=== PATIENT | female | born 1995 | race Caucasian/White ===

== ENCOUNTER 2023-01-27 23:07 | Emergency (ER) | payer SELFPAY ==
[2023-01-27 23:08] VITALS: BP 143/98; PULSE 94; RESP 14; TEMP 36.8; O2SAT 98; BMI 44.4
--- NOTE | 2023-01-27 23:51 | EX.ED.GENINJ ---
HPI History of Present Illness Chief Complaint: Head Injury Narrative Narrative: 27-year-old female who denies significant past medical history presents with closed head injury that she sustained over 24 hours ago, yesterday morning. She states that she was getting out of the tub, and she fell. She slipped and hit the left side of her head against the floor, and hit the right side of her head against the toilet. There was no loss of consciousness. She presents today because she feels dazed, dizzy, and is having problems concentrating. She denies any profuse vomiting, tinnitus, or paresthesias of her arms or legs. She does not take blood thinners. No neck pain or other symptoms. [facility] Medical History Asthma COVID Pneumonia Home Medications albuterol sulfate 0.63 mg/3 mL solution for nebulization 0.63 mg inhalation Q6H 08/12/22 [History Last Taken Unknown] Allergy/AdvReac Type Severity Reaction Status Date / Time pineapple Allergy Unknown itchy Verified 01/27/23 23:08 burning tongue wheat Allergy Unknown Hives Verified 01/27/23 23:08 ROS ROS ED ROS Narrative Constitutional: No fever, no chills. HEENT: No sore throat. No neck pain. No loss of vision. No rhinorrhea. Cardiovascular: No chest pain. No palpitations. No pedal edema. Respiratory: No cough, no shortness of breath. Abdominal: No abdominal pain. No nausea. No vomiting. Genitourinary: No dysuria. No hematuria. Musculoskeletal: No myalgias. No arthralgias. Neurologic: Positive for headaches. Positive dizziness and lightheadedness, positive brain fog and problems concentrating. Skin: No rash. No change in color. Psychiatric: No depression. No anxiety. EXAM Physical Exam Narrative Exam Narrative: Afebrile. Vital signs noted. HEENT: Normocephalic. PERRL, EOMI. Neck soft and supple. No point tenderness or step off. Mild tenderness to palpation right parietal scalp. Cardiovascular: Regular rate and rhythm. No murmurs, rubs, or gallops appreciated. Respiratory: No tachypnea. Lungs clear to auscultation bilaterally. Gastrointestinal: Abdomen soft, nontender, with normoactive bowel sounds. No rebound or guarding. Neurological: Awake. Alert. Nonfocal, nonlateralizing. Skin: No rash. Normal color. No pallor. Musculoskeletal: No pedal edema. Full range of motion extremities. Const Vital Signs: 01/27/23 23:08 Temperature 98.2 F Temperature Source Temporal Pulse Rate 94 Respiratory Rate 14 Blood Pressure 143/98 H Blood Pressure Mean 113 Pulse Ox 98 Oxygen Delivery Method Room Air MDM MDM MDM Narrative Medical decision making narrative: I do not feel CT of the brain is indicated. In the differential is mild concussion versus intracranial hemorrhage and skull fracture. However, the history and physical is not supportive of the latter 2. Her injury is greater than 24 hours old, almost 36 hours old. She will take [id number] medications and follow-up with her primary care provider. Activity will be as tolerated. I do not feel she requires observation. I do not feel laboratory work is indicated. Return instructions to the emergency department were reviewed. Disposition is discharged home in stable condition. Discharge Plan Triage Chief Complaint: Head Injury ED Provider: Pepe Cordero Dx/Rx/DC Orders Clinical Impression: Concussion, Contusion of scalp Instructions: ED Concussion, ED Scalp Contusion, ED Head Injury (Adult) Prescriptions: No Action albuterol sulfate 0.63 mg/3 mL solution for nebulization 0.63 mg inhalation Q6H Activity Restrictions/Additional Instructions: Follow-up with your primary care provider in the next 7 days if your symptoms persist. Use [id number] medications like Tylenol and ibuprofen for pain. Disposition Disposition: Home, Self Care
[2023-01-28 00:12] VITALS: PULSE 71; RESP 18; O2SAT 98
== END 2023-01-28 00:15 | disposition home or self-care (01) ==
LOC: ED 23:59
PROVIDERS: Emergency Provider Emergency Medicine; PCP Nurse Practitioner Family; Visit Provider Emergency Medicine
DX: S06.0X0A Concussion without loss of consciousness, initial encounter (principal); S00.03XA Contusion of scalp, initial encounter; W01.198A Fall on same level from slipping, tripping and stumbling with subsequent striking against other object, initial encounter; Y93.E1 Activity, personal bathing and showering
CPT/HCPCS: 99282

== ENCOUNTER → 2024-09-11 | Outpatient (CLI) | payer SELFPAY ==
[2024-09-11 13:40] LABS: Hematocrit 40.2 % (37-47); Hemoglobin 13.6 g/dL (12.0-15.0); Immature Granulocytes Count 0.030 X10^3/uL (0.0-0.0); Mean Corp Hgb Conc 33.8 g/dL (32-36); Mean Corpuscular Volume 83.2 fL (81-99); Mean Platelet Vol. 12.0 fl (6.2-12.0); NRBC Flagged by Analyzer 0 % (0-5); Platelet Count 186 K/mm3 (150-450); RBC Distribution Width CV 12.9 % (11.6-14.6); RBC Distribution Width SD 39.0 fl (35.1-43.9); Red Blood Count 4.83 M/mm3 (4.2-5.4); White Blood Count 7.4 K/mm3 (4.4-11.0)
[2024-09-15 06:08] LABS: Ash, White 0.24 kU/L (Class 0/I); Black Walnut 0.18 kU/L (Class 0/I); Cat Hair / Dander,Stand 1.12 kU/L (Class II); Cedar, Mountain 0.12 kU/L (Class 0/I); Cockroach, American 0.18 kU/L (Class 0/I); Dog Epithelia <0.10 kU/L (Class 0); Elm, American White 0.19 kU/L (Class 0/I); Mulberry, White 0.11 kU/L (Class 0/I); Oak, White 0.14 kU/L (Class 0/I); Pigweed, Rough 0.13 kU/L (Class 0/I); Ragweed, Short/Common 0.19 kU/L (Class 0/I); Sycamore, American 0.20 kU/L (Class 0/I)
== END | disposition home or self-care (01) ==
LOC: LAB 12:49
PROVIDERS: PCP Nurse Practitioner Family; Referring Provider Internal Medicine Critical Care Medicine; Visit Provider Internal Medicine Critical Care Medicine
DX: J45.909 Unspecified asthma, uncomplicated (principal)
CPT/HCPCS: 36415; 82785; 85025; 86003

== ENCOUNTER → 2024-09-26 | Outpatient (CLI) | payer SELFPAY ==
--- OUTSIDE RECORDS SUMMARY | 2024-09-26 11:08 | XMS RPT_ITS | CCD ---
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 Machinist Name Role Phone Raymond Ventura Unavailable NICHELLE HENRYHEL Mary Unavailable Unavailable SELF, SELF Unavailable Unavailable Raymond Ventura Primary Care Provider Raymond Ventura Primary Care Provider JUDIT FRANK Referring Unavail able RAYMOND VENTURA Primary Care Unavailable JUDIT FRANK Admitting Unavail able RAYMOND VENTURA Primary Care Unavailable JUDIT FRANK Attending Unavail able RAYMOND VENTURA Primary Care Unavailable CARLEEN ROBLES Admitting Unavai labmariia VENTUAR, RAYMOND ACOSTA Primary Care Unavailable LORENZO, RAYMOND ACOSTA Attending Unavailable RAYMOND VENTURA Primary Care Unavailable COOPERRIDER II, NORMAN Cano Referring Unavailabl e GRMANUEL, RAYMOND Dennis Primary Care Unavailable COOPERRIDEROSEAS Referring Unavailabl e COOPERRIDER II, NORMAN Cano Attending Unavailabl e GRUNDRAYMOND Primary Care Unavailable OSEAS ECHAVARRIA Attending Unavailabl e GRRAYMOND JACKSON Primary Care Unavailable EVANGELISTA TRUJILLO Referring Unavailable SONALI MUÑOZ Attending Unavailable SONALI MUÑOZ Primary Care Unavailable SHAMIR GUZMAN DO Attending Unavailable SHAMIR GUZMAN DO Primary Care Unavailable SHAMIR GUZMAN DO Admitting Unavailable Derrek ACCOUNT AUDITOR-C, Sonali Primary Care Provider [phone] Derrek PALMER-CSonali Referring Provider [phone] Dr. Meño Sampson DO Attending Provider Dr. Meño Sampson DO Referring Provider Derrek ACCOUNT AUDITORSonali Primary Care Unavailable Sonali Muñoz NP Referring Unavailable Meño Sampson Attending Unavailable Sonali Muñoz NP Primary Care Unavailable Meño Sampson Attending Unavailable Meño Sampson Referring Unavailable Meño Sampson Attending Unavailable Meño Sampson Referring Unavailable Sonali Muñoz NP Primary Care Unavailable Allergies Allergy Classification Reported Allergen(s) Allergy Type Date of Onset Reaction(s) Facility Corticosteroids (1 source) predniSONE; Translations: [PREDNISONE] Drug Allergy 0 [facility] Repository (7 sources) pineapple allergenic extract; Translations: [PINEAPPLE] Drug Allergy 7 [facility] Work Phone: (6 sources) Pineapple Propensity to adverse reactions to drug 8 itchy burning tongue [facility] (6 sources) predniSONE; Translations: [PREDNISONE] Drug Allergy 0 [facility] (3 sources) Wheat preparation Drug Allergy 3 [facility] (1 source) Gluten; Translations: [GLUTEN] Propensity to adverse reactions to drug (disorder) 4 [facility] Repository (1 source) Wheat preparation Drug Allergy 5 [facility] Repository (1 source) pineapple Drug allergy (disorder) 5 [facility] Repository Medications Current Medications Medication Drug Class(es) Dates Sig (Normalized) Sig (Original) albuterol 0.21 mg/ml inhalation solution (3 sources) beta2-Adrenergic Agonist Start: 08-12-2022 take 0.63 mg by inhalation every six hours Albuterol Sulfate 0.63 mg/3 mL solution for nebulization Active 0.63 mg INHALATION EVERY 6 HOURS August 12, 2022 12:00am albuterol 90 mcg/actuation inhaler (3 sources) Start: 11-15-2019 take 2 puff(s) by inhalation every four hours as needed for wheezing albuterol 90 mcg/actuation inhaler Indications: Asthma, exercise induced Inhale 2 (two) puffs every 4 (four) hours as needed for wheezing or shortness of breath . 1 Inhaler 1 11/15/2019 Active amoxicillin 500 mg oral capsule (1 source) Penicillin-class Antibacterial Start: 11-15-2019 End: 11-25-2019 take 1 capsule by mouth three times daily amoxicillin (AMOXIL) 500 MG capsule Indications: Left otitis media, unspecified otitis media type Take 1 (one) capsule (500 mg total) by mouth 3 (three) times a day for 10 days . 30 capsule 0 11/15/2019 11/25/2019 Active fexofenadine hydrochloride 180 mg oral tablet (3 sources) Histamine-1 Receptor Antagonist take 1 tablet by mouth once daily fexofenadine (JASPER) 180 MG tablet Take 180 mg by mouth daily. 0 Active fluticasone propionate 0.05 mg/actuat metered dose nasal spray (4 sources) Corticosteroid Start: 10-11-2017 End: 11-14-2020 take 2 spray(s) nasal route once daily fluticasone propionate (FLONASE) 50 mcg/actuation nasal spray Indications: Dysfunction of left eustachian tube Instill 2 (two) sprays into each nostril daily . 16 g 12 11/15/2019 11/14/2020 Active sertraline 100 mg oral tablet (2 sources) Serotonin Reuptake Inhibitor Start: 09-11-2024 take 1 tablet by mouth once daily in the morning Sertraline 100 mg tablet Active 100 mg PO EVERY MORNING September 11, 2024 12:00am sod zuvet-lmudkf-scxftk bottle (NEILMED SINUS RINSE COMPLETE) pkdv (1 source) Start: 10-11-2017 sod lhsfa-qjlhyh-lyun ez bottle (NEILMED SINUS RINSE COMPLETE) pkdv Indications: Sinusitis, unspecified chronicity, unspecified location Instill 1 application into each nostril daily. 30 each 3 10/11/2017 Active Completed/Discontinued Medications Medication Drug Class(es) Dates Sig (Normalized) Sig (Original) Azithromycin 250 Mg Po Tabs (1 source) Macrolide Antimicrobial Start: 01-08-2017 End: 02-05-2018 azithromycin 250 MG Tab tablet Take 2 tablets (500 mg) on Day 1, then 1 tablet (250 mg) daily on Days 2-5 6 tablet 0 01/08/2017 02/05/2018 Discontinued brompheniramine maleate 0.4 mg/ml / dextromethorphan hydrobromide 2 mg/ml / pseudoePHEDrine hydrochloride 6 mg/ml oral solution (1 source) alpha-Adrenergic Agonist, Uncompetitive U-psvrll-M-aspartat e Receptor Antagonist, Sigma-1 Agonist Start: 01-08-2017 End: 02-05-2018 take 1-2 [tsp_us] by mouth every six hours as needed pseudoephedrine-b rompheniramine-de xtromethorphan (BROMFED DM) 30-2-10 MG/5ML Syrup Take 1-2 teaspoon PO every 6 hours as needed 150 mL 0 01/08/2017 02/05/2018 Discontinued Problems Active Problems Problem Classification Problem Date Documented Date Episodic/Chronic Abdominal pain (1 source) Pain in pelvis; Translations: [Pelvic Pain] Onset: 02-05-2018 Episodic Allergic reactions (2 sources) Urticaria; Translations: [Hives] Episodic Asthma (8 sources) Exercise-induced asthma; Translations: [Asthma] Onset: 09-24-2024 08-12-2022 Chronic Cardiac dysrhythmias (2 sources) Palpitations; Translations: [Palpitations] Episodic Intracranial injury (3 sources) Concussion injury of body structure; Translations: [Concussion] 01-27-2023 Episodic Malaise and fatigue (2 sources) Fatigue; Translations: [Fatigue, unspecified type] Episodic Menstrual disorders (3 sources) Dysmenorrhea; Translations: [Excessive and frequent menstruation with regular cycle] Onset: 01-16-2024 Chronic Other lower respiratory disease (2 sources) Dyspnea; Translations: [Shortness of breath] Episodic Other nutritional; endocrine; and metabolic disorders (3 sources) Morbid obesity; Translations: [Obesity, morbid, BMI 40.0-49.9] Onset: 02-05-2018 02-05-2018 Chronic Other screening for suspected conditions (not mental disorders or infectious disease) (2 sources) Electrocardiogram abnormal; Translations: [Abnormal ECG] Episodic Other upper respiratory disease (2 sources) Nasal discharge; Translations: [Rhinorrhea] Episodic Other upper respiratory disease (2 sources) Nasal congestion; Translations: [Nasal congestion] Episodic Other upper respiratory infections (3 sources) Acute pharyngitis; Translations: [Acute pharyngitis, unspecified] 08-12-2022 Episodic Otitis media and related conditions (2 sources) Otitis media of left ear; Translations: [Dysfunction of left eustachian tube] Pneumonia (except that caused by tuberculosis or sexually transmitted disease) (1 source) Unspecified bacterial pneumonia; Translations: [Unspecified bacterial pneumonia] Onset: 04-29-2024 Episodic Residual codes; unclassified (2 sources) Chill; Translations: [Chills] Episodic Superficial injury; contusion (3 sources) Contusion of scalp; Translations: [Contusion of scalp, initial encounter] 01-27-2023 Episodic Unclassified (1 source) Pelvic Pain / [id number]() Onset: 02-05-2018 Unclassified (1 source) Other / 0() Onset: 02-05-2018 Unclassified (1 source) Cough, unspecified; Translations: [Cough, unspecified] Onset: 04-29-2024 Past or Other Problems Problem Classification Problem Date Documented Da te Episodic/Chronic Blindness and vision defects (1 source) Myopia, bilateral; Translations: [Myopia, bilateral] Onset: 07-19-2019 Episodic Unclassified (1 source) Other; Translations: [Other] Onset: 02-05-2018 Unclassified (1 source) Cough, unspecified; Translations: [Cough, unspecified] Onset: 04-29-2024 Results Test Name Value Interpretation Reference Range Facility Immunoglobulin Filippo 5 IMMUNOGLOB E QN 251 IU/mL Normal 6-495 [facility] Comment on above: Result Comment: Perf ormed at: - [facility] [address] [id number] Log Buyer: Austyn Lorenzana MD, Phone: [phone] Performed By: #### L 100.0100, L5500.0700, L3200.1600 #### [facility] [address] [place], [place], [id number] Allergen Resp. Area [id number] ALTERNARIA TEN <0.10 Normal Class 0 [facility] Comment on above: Order Comment: Reaso n for Exam: Asthma Performed By: #### L 100.0100, L5500.0700, L3200.1600 #### [facility] [address] [place], [place], [id number] BRIAN, WHITE 0.24 kU/L Abnormal Class 0/I [facility] Comment on above: Order Comment: Reaso n for Exam: Asthma Performed By: #### L 100.0100, L5500.0700, L3200.1600 #### [facility] [address] [place], [address] ASPERGILLUS FUM <0.10 Normal Class 0 [facility] Comment on above: Order Comment: Reaso n for Exam: Asthma Performed By: #### L 100.0100, L5500.0700, L3200.1600 #### [facility] [address] [place], [address] BERMUDA GRASS 0.22 kU/L Abnormal Class 0/I [facility] Comment on above: Order Comment: Reaso n for Exam: Asthma Performed By: #### L 100.0100, L5500.0700, L3200.1600 #### [facility] [address] [place], [address] BIRCH 0.12 kU/L Abnormal Class 0/I [facility] Comment on above: Order Comment: Reaso n for Exam: Asthma Performed By: #### L 100.0100, L5500.0700, L3200.1600 #### [facility] [address] [place], [address] BLACK WALNUT 0.18 kU/L Abnormal Class 0/I [facility] Comment on above: Order Comment: Reaso n for Exam: Asthma Performed By: #### L 100.0100, L5500.0700, L3200.1600 #### [facility] [address] [place], [address] CAT HAIR/DANDER 1.12 kU/L Abnormal Class II [facility] Comment on above: Order Comment: Reaso n for Exam: Asthma Performed By: #### L 100.0100, L5500.0700, L3200.1600 #### [facility] [address] [place], [address] CLADOSPOR HERB <0.10 Normal Class 0 [facility] Comment on above: Order Comment: Reaso n for Exam: Asthma Performed By: #### L 100.0100, L5500.0700, L3200.1600 #### [facility] [address] [place], [address] COCKROACH,AMER 0.18 kU/L Abnormal Class 0/I [facility] Comment on above: Order Comment: Reaso n for Exam: Asthma Performed By: #### L 100.0100, L5500.0700, L3200.1600 #### [facility] [address] [place], [address] COMMENT Comment Normal . [facility] Comment on above: Order Comment: Reaso n for Exam: Asthma Result Comment: Zafar ceballos of Specific IgE Class Description of Class ----- < 0.10 0 Negative 0.10 - 0.31 0/I Equivocal/Low 0.32 - 0.55 I Low 0.56 - 1.40 II Moderate 1.41 - 3.90 III High 3.91 - 19.00 IV Very High 19.01 - 100.00 V Very High >100.00 Very High Performed By: #### L 100.0100, L5500.0700, L3200.1600 #### [facility] [address] [place], [address] COTTONWOOD 0.20 kU/L Abnormal Class 0/I [facility] Comment on above: Order Comment: Reaso n for Exam: Asthma Performed By: #### L 100.0100, L5500.0700, L3200.1600 #### [facility] [address] [place], [address] D FARINAE MITE 0.10 kU/L Abnormal Class 0/I [facility] Comment on above: Order Comment: Reaso n for Exam: Asthma Performed By: #### L 100.0100, L5500.0700, L3200.1600 #### [facility] [address] [place], [address] D PTERONYSSINUS <0.10 Normal Class 0 [facility] Comment on above: Order Comment: Reaso n for Exam: Asthma Performed By: #### L 100.0100, L5500.0700, L3200.1600 #### [facility] [address] [place], [address] DOG EPITHELIA <0.10 Normal Class 0 [facility] Comment on above: Order Comment: Reaso n for Exam: Asthma Performed By: #### L 100.0100, L5500.0700, L3200.1600 #### [facility] [address] [place], [address] ELM,AMER WHITE 0.19 kU/L Abnormal Class 0/I [facility] Comment on above: Order Comment: Reaso n for Exam: Asthma Performed By: #### L 100.0100, L5500.0700, L3200.1600 #### [facility] [address] [place], [address] IMMUNOGLOB E 239 IU/mL Normal 6-495 [facility] Comment on above: Order Comment: Reaso n for Exam: Asthma Performed By: #### L 100.0100, L5500.0700, L3200.1600 #### [facility] [address] [place], [address] MAPLE/BOX ELDER 0.18 kU/L Abnormal Class 0/I [facility] Comment on above: Order Comment: Reaso n for Exam: Asthma Performed By: #### L 100.0100, L5500.0700, L3200.1600 #### [facility] [address] [place], [address] M[place] 0.12 kU/L Abnormal Class 0/I [facility] Comment on above: Order Comment: Reaso n for Exam: Asthma Performed By: #### L 100.0100, L5500.0700, L3200.1600 #### [facility] [address] [place], [address] Mouse Urine <0.10 Normal Class 0 [facility] Comment on above: Order Comment: Reaso n for Exam: Asthma Performed By: #### L 100.0100, L5500.0700, L3200.1600 #### [facility] [address] [place], [address] MULBERRY,WHITE 0.11 kU/L Abnormal Class 0/I [facility] Comment on above: Order Comment: Reaso n for Exam: Asthma Performed By: #### L 100.0100, L5500.0700, L3200.1600 #### [facility] [address] [place], [address] OAK, WHITE 0.14 kU/L Abnormal Class 0/I [facility] Comment on above: Order Comment: Reaso n for Exam: Asthma Performed By: #### L 100.0100, L5500.0700, L3200.1600 #### [facility] [address] [place], [address] PECAN 0.15 kU/L Abnormal Class 0/I [facility] Comment on above: Order Comment: Reaso n for Exam: Asthma Performed By: #### L 100.0100, L5500.0700, L3200.1600 #### [facility] [address] [place], [address] PEN NOTATUM <0.10 Normal Class 0 [facility] Comment on above: Order Comment: Reaso n for Exam: Asthma Performed By: #### L 100.0100, L5500.0700, L3200.1600 #### [facility] [address] [place], [address] PIGWEED, ROUGH 0.13 kU/L Abnormal Class 0/I [facility] Comment on above: Order Comment: Reaso n for Exam: Asthma Performed By: #### L 100.0100, L5500.0700, L3200.1600 #### [facility] [address] [place], [address] RAGWEED SH/COM 0.19 kU/L Abnormal Class 0/I [facility] Comment on above: Order Comment: Reaso n for Exam: Asthma Performed By: #### L 100.0100, L5500.0700, L3200.1600 #### [facility] [address] [place], [address] SPANISH THISTLE 0.18 kU/L Abnormal Class 0/I [facility] Comment on above: Order Comment: Reaso n for Exam: Asthma Performed By: #### L 100.0100, L5500.0700, L3200.1600 #### [facility] [address] [place], [address] SHEEP SORREL 0.19 kU/L Abnormal Class 0/I [facility] Comment on above: Order Comment: Reaso n for Exam: Asthma Result Comment: Perf ormed at: - [facility] [id number] Log Buyer: Austyn Lorenzana MD, Phone: [phone] Performed By: #### L 100.0100, L5500.0700, L3200.1600 #### [facility] [address] [place], [address] SYCAMORE, AMER 0.20 kU/L Abnormal Class 0/I [facility] Comment on above: Order Comment: Reaso n for Exam: Asthma Performed By: #### L 100.0100, L5500.0700, L3200.1600 #### [facility] [address] [place], [address] EDELMIRA GRASS 0.46 kU/L Abnormal Class I [facility] Comment on above: Order Comment: Reaso n for Exam: Asthma Performed By: #### L 100.0100, L5500.0700, L3200.1600 #### [facility] [address] [place], [address] Absolute lymphocyte countOrd ered By: Meño Sampson on 09-11-2024 Lymphocytes Auto (Unsp spec) [#/Vol] 1.91 10*3/uL 0.83-4.51 [facility] Absolute neutrophil countOrd ered By: Meño Sampson on 09-11-2024 Neutrophils (Bld) [#/Vol] 4.8 10*3/uL 2.0-7.7 [facility] Automated lymphocyte count a s percentage of total leukocytesOrdered By: Meño Sampson on 09-11-2024 Lymphocytes/100 WBC Auto (Unsp spec) 25.7 % 19-41 [facility] Basophil percentageOrdered B y: Meño Sampson on 09-11-2024 Basophils/100 WBC (Bld) 0.5 % 0-1 [facility] CBC W/Diff, Automatedon 08-28 Absolute Lymph 1.91 X10 3/uL Normal 0.83-4.51 [facility] Comment on above: Performed By: #### L 100.0100, L5500.0700, L3200.1600 #### [facility] [address] [place], [address] Absolute Neut 4.8 X10 3/uL Normal 2.0-7.7 [facility] Comment on above: Performed By: #### L 100.0100, L5500.0700, L3200.1600 #### [facility] [address] [place], [address] Basophils/100 WBC (Bld) 0.5 % Normal 0-1 [facility] Comment on above: Performed By: #### L 100.0100, L5500.0700, L3200.1600 #### [facility] [address] [place], [address] Eosinophils/100 WBC (Bld) 4.7 % Normal 0-5 [facility] Comment on above: Performed By: #### L 100.0100, L5500.0700, L3200.1600 #### [facility] [address] [place], [address] Erythrocyte distribution width (RBC) [Ratio] 12.9 % Normal 11.6-14.6 [facility] Comment on above: Performed By: #### L 100.0100, L5500.0700, L3200.1600 #### [facility] [address] [place], [address] Hematocrit (Bld) [Volume fraction] 40.2 % Normal 37-47 [facility] Comment on above: Performed By: #### L 100.0100, L5500.0700, L3200.1600 #### [facility] [address] [place], [address] Hemoglobin (Bld) [Mass/Vol] 13.6 g/dL Normal 12.0-15.0 [facility] Comment on above: Performed By: #### L 100.0100, L5500.0700, L3200.1600 #### [facility] [address] [place], [address] IG% 0.400 Normal 0.0-0.9 [facility] Comment on above: Result Comment: IG% - Immature Granulocytes (promyelocytes, myelocytes and metamyelocytes) > 1% indicates that a LEFT SHIFT is Present. Performed By: #### L 100.0100, L5500.0700, L3200.1600 #### [facility] [address] [place], [address] Lymphocytes/100 WBC (Bld) 25.7 % Normal 19-41 [facility] Comment on above: Performed By: #### L 100.0100, L5500.0700, L3200.1600 #### [facility] [address] [place], [address] MCH (RBC) [Entitic mass] 28.2 pg Normal 27.0-32.0 [facility] Comment on above: Performed By: #### L 100.0100, L5500.0700, L3200.1600 #### [facility] [address] [place], [address] MCHC (RBC) [Mass/Vol] 33.8 g/dL Normal 32-36 [facility] Comment on above: Performed By: #### L 100.0100, L5500.0700, L3200.1600 #### [facility] [address] [place], [address] MCV (RBC) [Entitic vol] 83.2 fL Normal 81-99 [facility] Comment on above: Performed By: #### L 100.0100, L5500.0700, L3200.1600 #### [facility] [address] [place], [address] Monocytes/100 WBC (Bld) 3.9 % Normal 0-10 [facility] Comment on above: Performed By: #### L 100.0100, L5500.0700, L3200.1600 #### [facility] [address] [place], [address] Neutrophils/100 WBC (Bld) 64.8 % Normal 47-70 [facility] Comment on above: Performed By: #### L 100.0100, L5500.0700, L3200.1600 #### [facility] [address] [place], [address] Nucleated RBC (Bld) [#/Vol] 0 10*3/uL Normal 0-5 [facility] Comment on above: Performed By: #### L 100.0100, L5500.0700, L3200.1600 #### [facility] [address] [place], [address] Platelet mean volume (Bld) [Entitic vol] 12.0 fL Normal 6.2-12.0 [facility] Comment on above: Performed By: #### L 100.0100, L5500.0700, L3200.1600 #### [facility] [address] [place], [address] Platelets (Bld) [#/Vol] 186 10*3/uL Normal 150-450 [facility] Comment on above: Performed By: #### L 100.0100, L5500.0700, L3200.1600 #### [facility] [address] [place], [address] RBC (Bld) [#/Vol] 4.83 10*6/uL Normal 4.2-5.4 [facility] Comment on above: Performed By: #### L 100.0100, L5500.0700, L3200.1600 #### [facility] [address] [place], [address] RDW SD 39.0 fl Normal 35.1-43.9 [facility] Comment on above: Performed By: #### L 100.0100, L5500.0700, L3200.1600 #### [facility] [address] [place], [address] WBC (Bld) [#/Vol] 7.4 10*3/uL Normal 4.4-11.0 [facility] Comment on above: Performed By: #### L 100.0100, L5500.0700, L3200.1600 #### [facility] [address] [place], [address] Eosinophil percentageOrdered By: Meño Sampson on 09-11-2024 Eosinophils/100 WBC (Bld) 4.7 % 0-5 [facility] Erythrocyte distribution wid th ratioOrdered By: Meño Sampson on 09-11-2024 Erythrocyte distribution width (RBC) [Ratio] 12.9 % 11.6-14.6 [facility] Erythrocyte distribution wid th standard deviationOrdered By: Meño Sampson on 09-11-2024 Erythrocyte distribution width (RBC) [Ratio] 39.0 fl 35.1-43.9 [facility] Hematocrit Auto (Bld) [Volum e fraction]Ordered By: Meño Sampson on 09-11-2024 Hematocrit (Bld) [Volume fraction] 40.2 % 37-47 [facility] Hemoglobin measurementOrdere d By: Meño Sampson on 09-11-2024 Hemoglobin (Bld) [Mass/Vol] 13.6 g/dL 12.0-15.0 [facility] IgEOrdered By: Meño marroquin n 09-11-2024 IgE 251 IU/mL 6-495 [facility] Comment on above: Performed at: [address] [id number] Director: Austyn Lorenzana MD, Phone: [phone] Immature granulocytes/100 WB C Auto (Bld)Ordered By: Meño Sampson on 09-11-2024 Immature granulocytes/100 WBC (Bld) 0.400 % 0.0-0.9 [facility] Comment on above: IG% - Immature Granu locytes (promyelocytes, myelocytes and metamyelocytes) > 1% indicates that a LEFT SHIFT is Present. MCV (mean corpuscular volume ) determinationOrdered By: Meño Sampson on 09-11-2024 MCV (RBC) [Entitic vol] 83.2 fL 81-99 [facility] Mean corpuscular hemoglobin (MCH) determinationOrdered By: Meño Sampson on 09-11-2024 MCH (RBC) [Entitic mass] 28.2 pg 27.0-32.0 [facility] Mean corpuscular hemoglobin concentration (MCHC) determinationOrdered By: Meño Sampson on 09-11-2024 MCHC (RBC) [Mass/Vol] 33.8 g/dL 32-36 [facility] Mean platelet volume determi nationOrdered By: Meño Sampson on 09-11-2024 Platelet mean volume (Bld) [Entitic vol] 12.0 fL 6.2-12.0 [facility] Monocyte percentageOrdered B y: Meño Sampson on 09-11-2024 Monocytes/100 WBC (Bld) 3.9 % 0-10 [facility] Neutrophil percentageOrdered By: Meño Sampson on 09-11-2024 Neutrophils/100 WBC (Bld) 64.8 % 47-70 [facility] No Panel InformationOrdered By: Meño Sampson on 09-11-2024 RAST Comment Comment . [facility] Comment on above: Levels of Specific I gE Class Description of Class ----- < 0.10 0 Negative 0.10 - 0.31 0/I Equivocal/Low 0.32 - 0.55 I Low 0.56 - 1.40 II Moderate 1.41 - 3.90 III High 3.91 - 19.00 IV Very High 19.01 - 100.00 V Very High >100.00 Very High Nucleated red blood cell per centageOrdered By: Meño Sampson on 09-11-2024 Nucleated RBC/100 WBC (Bld) [Ratio] 0 % 0-5 [facility] Platelet countOrdered By: Guidry on 09-11-2024 Platelets (Bld) [#/Vol] 186 10*3/uL 150-450 [facility] Pulmonary Visit Reporton Pulmonary Visit Report [facility] [place] [address] [place] [address] OFFICE VISIT Date of Service: 09/11/24 MR#: [id number] Acct: [id number] Name: OPAL QUINONES Rep #: [id number] : 1995 Provider: Dr. 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 The patient typically experiences worsening in her respiratory symptoms during the winter months. At the present time, she is relatively asymptomatic and has not required the use of her rescue inhaler. Therefore, we will plan to obtain baseline pulmonary function studies along with a 6-minute walk test. In addition, a CBC with differential will be obtained to evaluate for peripheral eosinophilia along with IgE and RAST profile. The results of testing will be reviewed at her follow-up office visit. Orders: Orders Simple Pulmonary Exercise Test Today J45.909 - Unspecified asthma, uncomplicated PFT Complete - DLCO, Spirometry b/a bronchodilators, lung volumes Today J45.909 - Unspecified asthma, uncomplicated CBC W/Diff, Automated Today J45.909 - Unspecified asthma, uncomplicated Immunoglobulin E Today J45.909 - Unspecified asthma, uncomplicated Allergen Resp. Area 5 Today J45.909 - Unspecified asthma, uncomplicated HPI HPI Comments Details: The patient is a 28-year-old female who presents to the clinic today in referral for the evaluation of asthma. The patient reported that she was initially diagnosed with exercise-induced asthma sometime around 13 years old. Despite this, the patient was never evaluated by a rib cloth knitter, nor did she ever complete pulmonary function studies. She has only ever been treated with an albuterol rescue inhaler. She indicated that her respiratory symptoms tend to be worse during the winter months. She typically experiences shortness of breath and wheezing. When utilized, she did report that the albuterol rescue inhaler does provide some symptom relief for her. She is a lifelong non-smoker and denied having grown up in a smoking household. 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 She does currently keep 1 dog as a pet in her home environment. She does have a history of seasonal allergies, with symptoms that tend to be worse during the spring and fall months. Recently, she has not been experiencing any respiratory related symptoms that would require the use of her rescue inhaler. She denies any fevers, chills or night sweats. 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 Meño Sampson, DO) Asthma Pneumonia COVID Surgical History (Updated 09/11/24 @ 11:28 by Radha Goodwin LPN) History of ankle surgery Adrian teeth extracted Social History Smoking Status: Never smoker Review of Systems Resp Respiratory: Yes as per HPI Exam Const Constitutional: Positive conversant, cooperative, in no acute respiratory distress, well developed, well nourished, good hygiene and obese Head Head: Yes normocephalic and Yes atraumatic Eyes Eye: Positive clear conjunctiva; Negative nystagmus or scleral abnormality Ears Ear: Positive hearing normal and external ears normal Nose Nose: Yes external nose normal Mouth Mouth: Positive oral mucosae normal and posterior oropharynx is adequate; Negative no lesions Neck Neck: Positive normal visual inspection and trachea midline; Negative lymphadenopathy Chest Wall Chest: Positive symmetric chest movement Normal AP diameter. Resp lung sounds: Positive clear to auscultation and good air exchange; Negative wheezes, rhonchi or r (more content not included)... Normal [facility] RBC Auto (Bld) [#/Vol]Ordere d By: Meño Sampson on 09-11-2024 RBC (Bld) [#/Vol] 4.83 10*6/uL 4.2-5.4 [facility] Serum Bhutanese sycamore IgE antibody assay (units/volume)Ordered By: Meño Sampson on 09-11-2024 Bhutanese Wakita IgE Qn (S) 0.20 kU/L High Class 0/I [facility] Serum Aspergillus fumigatus IgE antibody assay (units/volume)Ordered By: Meño Sampson on 09-11-2024 A. fumigatus IgE Qn (S) <0.10 kU/L Class 0 [facility] Serum Bermuda grass IgE anti body assay (units/volume)Ordered By: Meño Sampson on 09-11-2024 Bermuda grass IgE Qn (S) 0.22 kU/L High Class 0/I [facility] Serum Cladosporium herbarum IgE antibody assay (units/volume)Ordered By: Meño Sampson on 09-11-2024 C. herbarum IgE Qn (S) <0.10 kU/L Class 0 [facility] Serum Dermatophagoides ptero nyssinus specific IgE antibody assay (units/volume)Ordered By: Meño Sampson on 09-11-2024 house dust mite IgE Qn (S) <0.10 kU/L Class 0 [facility] Serum Fraxinus americana IgE antibody assay (units/volume)Ordered By: Meño Sampson on 09-11-2024 White Brian IgE Qn (S) 0.24 kU/L High Class 0/I [facility] Serum Rumex acetosella IgE a ntibody assay (units/volume)Ordered By: Meño Sampson on 09-11-2024 Sheep [place] IgE Qn (S) 0.19 kU/L High Class 0/I [facility] Comment on above: Performed at: [address] [id number] Director: Austyn Lorenzana MD, Phone: [phone] Serum black walnut IgE antib jennifer assay (units/volume)Ordered By: Meño Sampson on 09-11-2024 Black Kenton IgE Qn (S) 0.18 kU/L High Class 0/I [facility] Serum cottonwood IgE antibod y assay (units/volume)Ordered By: Meño Sampson on 09-11-2024 Fordyce IgE Qn (S) 0.20 kU/L High Class 0/I [facility] Serum dog epithelium IgE ant ibody assay (units/volume)Ordered By: Meño Sampson on 09-11-2024 Dog epithelium IgE Qn (S) <0.10 kU/L Class 0 [facility] Serum edelmira IgE antibody a ssay (units/volume)Ordered By: Meño Sampson on 09-11-2024 Edelmira IgE Qn (S) 0.46 kU/L High Class I [facility] Serum white elm IgE antibody assay (units/volume)Ordered By: Meño Sampson on 09-11-2024 White Elm IgE Qn (S) 0.19 kU/L High Class 0/I [facility] Serum white mulberry IgE ant ibody assay (units/volume)Ordered By: Meño Sampson on 09-11-2024 White mulberry IgE Qn (S) 0.11 kU/L High Class 0/I [facility] White blood cell (WBC) count Ordered By: Meño Sampson on 09-11-2024 WBC (Bld) [#/Vol] 7.4 10*3/uL 4.4-11.0 [facility] CHEST 1 VIEWon 04-29-2024 CHEST 1 VIEW [place] [address] Patient: OPAL QUINONES Phone#: : 1995 Age: 28 Gender: F Pt. Type: ER Account: [id number] Location: [facility] Ordering: SHAMIR GUZMAN Exam Date: 04/29/2024/3:52 Family Phys: Charge Code: 605267 Physician: [place] Order #: [id number] Dose#: PROCEDURE: X-RAY CHEST 1 VIEW COMPARISON: [facility], XR, CHEST 1 VIEW, 05/15/2022, 2:08. INDICATIONS: Shortness of breath. FINDINGS: LUNGS: Normal. No significant pulmonary parenchymal abnormalities. VASCULATURE: Normal. Unremarkable pulmonary vasculature. CARDIAC: Normal. No cardiac silhouette abnormality or cardiomegaly. MEDIASTINUM: Normal. No visible mass or adenopathy. PLEURA: Normal. No effusion or pleural thickening. BONES: Normal. No fracture or visible bony lesion. OTHER: Negative. CONCLUSION: No acute disease. No significant change has occurred. Dictated by: Divine Barrera MD on 04/30/2024 at 10:06 Approved by: Divine Barrera MD on 04/30/2024 at 10:06 Normal [facility] CORONAVIRUS (SARS) ANTIGEN T ESTon 04-29-2024 EXTERNAL QC DONE? YES Normal [facility] Comment on above: Performed By: #### [id number] #### [facility],[address] [place] [address] INTERNAL CONTROL PASS Normal [facility] Comment on above: Performed By: #### [id number] #### [facility],[address] [place] [id number] SARS ANTIGEN Negative Normal NORMAL: NEGATIVE [facility] Comment on above: Performed By: #### [id number] #### [facility],[address] [place] [address] SEND TO ? NO Normal [facility] Comment on above: Result Comment: SARS -CoV-2 THIS TEST IS BEING USED UNDER THE FDA EUA PROCEDURE. THIS ASSAY HAS BEEN VALIDATED AT [facility] FOR USE WITH NASAL AND NASOPHARYNGEAL SWAB SPECIMENS. INTERPRETIVE DATA TEST RESULTS SHOULD ALWAYS BE CONSIDERED IN THE CONTEXT OF CLINICAL OBSERVATIONS AND EPIDEMIOLOGICAL DATA IN MAKING FINAL DIAGNOSIS AND PATIENT MANAGEMENT DECISIONS. PATIENT MANAGEMENT SHOULD FOLLOW CURRENT CDC GUIDELINES. THE DOM SARS ANTIGEN HEIDE DOES NOT DIFFERENTIATE BETWEEN SARS-CoV & SARS-CoV-2. A POSITIVE TEST RESULT INDICATES THE PRESENCE OF SARS-CoV-2 NUCLEOCAPSID PROTEIN ANTIGEN, AND THE PATIENT IS INFECTED WITH THE VIRUS AND PRESUMED TO BE CONTAGIOUS. A NEGATIVE TEST RESULT FOR THIS TEST MEANS THAT SARS-CoV-2 NUCLEOCAPSID PROTEIN ANTIGEN WAS NOT PRESENT IN THE SPECIMEN ABOVE THE LIMIT OF DETECTION. HOWEVER, A NEGATIVE RESULT DOES NOT RULE OUT COVID-19 AND SHOULD NOT BE USED THE SOLE BASIS FOR TREATMENT OR PATIENT MANAGEMENT DECISIONS. A NEGATIVE RESULT DOES NOT EXCLUDE THE POSSIBILITY OF COVID-19. NEGATIVE RESULTS, FROM PATIENTS WITH SYMPTOM ONSET BEYOND FIVE DAYS, SHOULD BE TREATED PRESUMPTIVE AND CONFIRMATION WITH A MOLECULAR ASSAY, IF NECESSARY, FOR PATIENT MANAGEMENT, MAY BE PERFORMED. WHEN DIAGNOSTIC TESTING IS NEGATIVE, THE POSSIBLILTY OF A FALSE NEGATIVE RESULT SHOULD BE CONSIDERED IN THE CONTEXT OF A PATIENT'S RECENT EXPOSURES AND THE PRESENCE OF CLINICAL SIGNS AND SYMPTOMS CONSISTENT WITH COVID-19. THE POSSIBILITY OF A FALSE NEGATIVE RESULT SHOULD ESPECIALLY BE CONSIDERED IF THE PATIENT'S RECENT EXPOSURES OR CLINICAL PRESENTATION INDICATE THAT COVID-19 IS LIKELY, AND DIAGNOSTIC TESTS FOR OTHER CAUSES OF ILLNESS (e.g., OTHER RESPIRATORY ILLNESS) ARE NEGATIVE. IF COVID-19 IS STILL SUSPECTED BASED ON EXPOSURE HISTORY TOGETHER WITH OTHER CLINICAL FINDINGS, RE-TESTING SHOULD BE CONSIDERED BY HEALTHCARE PROVIDERS IN CONSULTATION WITH PUBLIC HEALTH AUTHORITIES. Performed By: #### [id number] #### [facility],[address] [place] [id number] ED MED ADMINISTRATION DETAIL on 04-29-2024 ED MED ADMINISTRATION DETAIL Eight Arm Operator Medication Administration Record [address] [address] [id number] 04/29/2024 Patient: OPAL QUINONES Sex: Female : 1995 Age: 28y MEASUREMENTS: Wt: 113.4 kg, Ht/Duncan: 64.0 in, BMI: 42.91 ALLERGIES: No known drug allergies Medication Ordered Medication Administration Date/Time Albuterol-Ipratropiu 04:24 04/29 Albuterol-Ipratropium (DuoNeb) 3mg/0.5mg Neb Tx 3 Given m (DuoNeb) mL given. Given by the respiratory therapist. Allergies verified and 04:24 04/29/2024 3mg/0.5mg Neb Tx confirmed 5 rights. Information reviewed with patient including Johnny Duffie 3 mL (NOW x1) reason for taking this medication and signs of allergic reaction. Scanned Verbalizes understanding. - 04:24 Johnny Puente Benzonatate 03:52 03 Benzonatate (Tessalon) PO 200 mg given. Allergies Given (Tessalon) PO 200 verified and confirmed 5 rights. Information reviewed with patient. - 03:52 04/29/2024 mg (NOW x1) 04:12 Morales De La Cruz R.N. Scanned Azithromycin 05:51 04/29 Azithromycin (Zithromax) PO 500 mg given. Allergies Given (Zithromax) PO 500 verified and confirmed 5 rights. Information reviewed with patient. - 05:51 04/29/2024 mg (NOW x1) 05:51 Morales De La Cruz R.N. Scanned 1 of 1 Normal [facility] ED NURSES CLINICAL NOTEon ED NURSES CLINICAL NOTE Nurse Narrative Nurse Clinical Narrative [address] [address] [id number] 04/29/2024 Patient: OPAL QUINONES Sex: Female : 1995 Age: 28y Primary Insurance: [facility] OUTPATIENT Policy Number: [id number] Subscriber: Other Disposition: Discharge to Home Disposition Decision Time: 05:57 04/29/2024 Departure Time: 06:09 04/29/2024 TRIAGE Arrived by private vehicle. Primary physician (Sonali Muñoz). Triage time: 03:22 04/29/2024. Acuity: LEVEL 2. Chief Complaint: COUGH. Onset. (04/23/24). ( Pt c/o starting with a pressure type discomfort to her facial sinuses on 04/23/24 and then developed a cough on 04/28/24.). The patient has had chest congestion and sinus pain. ( Pt reports she has a pulse ox at home and tonight she noticed the level lesened to 72% when she walked to the bathroom.). SEPSIS SCREEN: NEGATIVE. SIRS criteria negative. SEVERE SEPSIS SCREEN NEGATIVE. No signs of organ dysfunction present. -- 03:41 04/29/24 NEETA Sims R.N. 03:30 04/29/24. BP: 138/87 (large cuff) taken on right arm, while sitting. MAP: 104. HR: 93. Regular and normal rate. RR: 16. Regular and unlabored. O2 saturation: 98% Temperature: 98 F (oral). Pain level now 0/10. -- 03:34 04/29/24 NEETA Sims R.N. Measurements: 03:36 04/29/24 Wt: 113.4 kg, Ht/Duncan: 64.0 in, BMI: 42.91 -- 03:36 04/29/24 NEETA Sims R.N. 1 of 4 Nurse Narrative Medications: Robitussin Cough-Chest Congestion DM oral -- 03:31 04/29/24 NEETA Sims R.N. albuterol sulfate HFA 90 mcg/actuation aerosol inhaler: 1 inhalation as needed. -- 03:32 04/29/24 NEETA Sims R.N. 03:22 04/29/24. Preferred Pharmacy: ([facility]). -- 03:41 04/29/24 NEETA Sims R.N. Allergies: no known drug allergies -- 03:31 04/29/24 NEETA Sims R.N. Problems: Asthma: Active -- 03:38 04/29/24 NEETA Sims R.N. Pneumonia -- 03:38 04/29/24 NEETA Sims R.N. ADDITIONAL SURGERIES: ankle repair -- 03:39 04/29/24 NEETA Sims R.N. History 03:04/29/24. SOCIAL HX: Smoker- current status unknown. Never smoker. Alcohol use. (0). Drug use. (0). The patient has not traveled outside the [place] Infectious disease exposure: The patient was not exposed to C-diff, influenza or Coronavirus. ABUSE ASSESSMENT: The patient answered yes to the question(s) Do you feel safe in your home? and no to the question(s) Are you afraid to go home?. SELF HARM ASSESSMENT: Self harm assessment was performed. The patient answered no to the question(s) Have you recently felt down, depressed, or hopeless?, Do you have thoughts of harming or killing yourself? and Do you have a plan for harming or killing yourself?. FALL RISK ASSESSMENT: Fall risk assessment completed. No risk factors identified. -- 03:41 04/29/24 NEETA Sims R.N. 2 of 4 Nurse Narrative Assessment 03:04/29/24. The patient states feels the same. -- 03:41 04/29/24 NEETA Sims R.N. Interventions 03:04/29/24. Identification band on patient. -- 03:41 04/29/24 NEETA Sims R.N. PHYSICAL ASSESSMENT 03:30 04/29/24. BP: 138/87 (large cuff) taken on right arm, while sitting. MAP: 104. HR: 93. Regular and normal rate. RR: 16. Regular and unlabored. O2 saturation: 98% Temperature: 98 F (oral). Pain level now 0/10. -- 03:42 04/29/24 NEETA Sims R.N. 03:42 04/29/24. Ambulatory to room. GENERAL / NEURO / PSYCH: Alert. Oriented X 4. Appears in no acute distress. HEENT: Pharynx within normal limits. Voice within normal limits. Mucous membranes are pink. RESPIRATORY: Respirations not labored. Breath sounds within normal limits. SKIN: Skin is warm and dry. Normal skin turgor. -- 03:42 04/29/24 NEETA Sims R.N. NURSING PROGRESS NOTES 03:37 04/29/24. ED physician at the patient's bedside (03:37 04/29/2024). -- 03:42 04/29/24 NEETA Sims R.N. 03:52 04/29/24. Benzonatate (Tessalon) PO 200 mg given. Allergies verified and confirmed 5 rights. Information reviewed with patient. -- 04:12 04/29/24 NEETA Sims R.N. 04:00 04/29/24. ( Pt amb to BR without difficulty.). -- 04:43 04/29/24 NEETA Sims R.N. 04:24 04/29/24. Albuterol-Ipratropium (DuoNeb) 3mg/0.5mg Neb Tx 3 mL given. Given by the respiratory therapist. Allergies verified and confirmed 5 rights. Information reviewed with patient including reason for taking this medication and signs of allergic reaction. Verbalizes understanding. -- 04:24 04/29/24 NEETA Puente 04:44 04/29/24. ( Pt continues to have an occasional cough). -- 04:44 04/29/24 EST Beti Sims R.N. 05:15 04/29/24. The patient reports no complaints. ( Pt updated. Pt continues to have a occas cough). -- 05:15 04/29/24 NEETA Sims R.N. 05:51 04/29/24. Azithromycin (Zithromax) PO 500 mg given. Allergie (more content not included)... Normal [facility] ED ORDER SHEET (CPOE ONLY)on 04-29-2024 ED ORDER SHEET (CPOE ONLY) Order Sheet Order Sheet [address] [place] [address] [id number] 04/29/2024 Patient: OPAL QUINONES Sex: Female : 1995 Age: 28y MEASUREMENTS: Wt: 113.4 kg, Ht/Duncan: 64.0 in, BMI: 42.91 ALLERGIES: No known drug allergies MEDICATION/IV/DRIP/FLUI D ORDERS Order Description Priority Entered Acknowledged Completed Albuterol-Ipratropium (DuoNeb) 03:45 04/29/2024 03:47 04:24 3mg/0.5mg Neb Tx3 mL (NOW Shamir Guzman D.O. 04/29/2024 04/29/2024 x1) Johnny De La Cruz R.NConstantin Benzonatate (Tessalon) PO200 03:45 04/29/2024 03:47 04:12 mg (NOW x1) Shaimr Guzman D.O. 04/29/2024 04/29/2024 Beti De La Cruz R.NCnostantin R.N. Azithromycin (Zithromax) 05:32 04/29/2024 05:35 05:51 PO500 mg (NOW x1) Shamir Guzman D.O. 04/29/2024 04/29/2024 Beti De La Cruz R.N. R.N. LAB ORDERS Order Description Priority Entered Acknowledged Collected Completed Flu Swab (Influenzae Stat 03:45 04/29/2024 03:47 04/29/2024 04:14 04/29/2024 AAg) Stat Marleen Brewster Debra Schrock, 1 of 2 Order Sheet R.N. R.N. Rapid COVID (SARS) Stat 03:45 04/29/2024 03:47 04/29/2024 05:35 04/29/2024 ANTIGEN TEST Stat Marleen Brewster Debra Schrock, R.N. R.N. DIAGNOSTIC STUDY ORDERS Order Description Priority Entered Acknowledged Completed Chest 1V Stat Stat 03:45 04/29/2024 03:47 04:14 Shamir Guzman D.O. 04/29/2024 04/29/2024 Beti De La Cruz R.N. R.N. Order Comments: 03:45 04/29/2024: Status: Not . Shamir Guzman D.O. Reason for Study: Pneumonia STAFF ORDERS Order Description Priority Entered Acknowledged Collected Completed [Electronically signed by Shamir Guzman D.O. (04/29/2024 20:27 EST)] 2 of 2 Normal [facility] ED PHYSICIAN CLINICAL REPORT on 04-29-2024 ED PHYSICIAN CLINICAL REPORT Narrative Physician Clinical Narrative [facility] [address] [place] [address] [phone] 04/29/2024 Patient: OPAL QUINONES Sex: Female : 1995 Age: 28y Primary Insurance: [employer] OUTPATIENT Policy Number: [id number] Subscriber: Other Disposition: Discharge to Home Disposition Decision Time: 05:57 04/29/2024 Departure Time: 06:09 04/29/2024 Measurements Wt: 113.4 kg, Ht/Duncan: 64.0 in, BMI: 42.91 Initial Vital Sign Measured Time BP MAP HR RR O2Sat ETCO2 Temp Pain GCS RTS 03:30 04/29/2024 138/87 104 93 16 98% 98.0 F 0 Time Seen: 03:31 04/29/2024. Arrived- By private vehicle. Historian- patient. HISTORY OF PRESENT ILLNESS Chief Complaint: COUGH, SINUS PAIN, FEVER, CHILLS, MUSCLE ACHES and FLU. This started yesterday and is still present. The illness is described as moderate. The patient has had a cough, difficulty breathing, hoarseness, nasal congestion and sinus pressure. The patient has had sinus drainage, fever, chills, muscle aches and a nasal discharge. No sputum production or chest discomfort or pain. Similar symptoms previously. None. Recent medical care: Not recently seen/assessed. 1 of 8 Narrative REVIEW OF SYSTEMS ENDO/HEME/LYMPH: No enlarged lymph nodes. GI: No nausea, vomiting, diarrhea or abdominal pain. CVS: No pedal edema or calf pain. : No difficulty with urination. SKIN: No skin rash. NEUROLOGICAL: No headache. EYES: No eye discomfort. MUSCULOSKELETAL: No joint pain. ALLERGY/IMMUNO: No hay fever. Status: Not . PAST HISTORY See nurses notes. Asthma: [Active] Pneumonia Surgeries: ankle repair Medications: albuterol sulfate HFA 90 mcg/actuation aerosol inhaler: 1 inhalation as needed. Robitussin Cough-Chest Congestion DM oral Allergies: no known drug allergies SOCIAL HISTORY Never smoker. No alcohol use or drug use. ADDITIONAL NOTES The nursing notes have been reviewed. PHYSICAL EXAM Appearance: Alert. No acute distress. Head: Tenderness present to percussion/palpation of the sinuses: mild right and left maxillary tenderness. Eyes: Pupils equal, round and reactive to light. ENT: Ears normal. Moderate, thin, clear nasal discharge present. Pharynx normal. Uvula midline. 2 of 8 Narrative Neck: Normal inspection. Neck supple. CVS: Normal heart rate and rhythm. Heart sounds normal. Pulses normal. Respiratory: No respiratory distress. Decreased breath sounds in the bases bilaterally. (Persistent cough noted). Abdomen: Soft and nontender. No organomegaly. Obese. Skin: Skin warm and dry. No rash. Extremities: Extremities exhibit normal ROM. No lower extremity edema. Neuro: Oriented X 3. No motor deficit. No sensory deficit. LABS, X-RAYS, AND EKG Chest X-ray: Infiltrate in the right lower lobe. Consistent with pneumonia. Views: PA. Technique: good. Interpretation time: 05:20 04/29/2024. Laboratory Tests: CORONAVIRUS (SARS) ANTIGEN TEST Final HAILEY: 04/29/2024 04:00:00 EST MsgRcvd: 04/29/2024 04:36 EST Lab Test Result Reference Status Received Comments NORMAL: 04/29/2024 SARS ANTIGEN NEGATIVE Final NEGATIVE 04:36 EST INTERNAL 04/29/2024 PASS Final CONTROL 04:36 EST EXTERNAL QC 04/29/2024 YES Final DONE? 04:36 EST 3 of 8 Narrative Lab Test Result Reference Status Received Comments SARS-CoV-2 THIS TEST IS BEING USED UNDER THE FDA EUA PROCEDURE. THIS ASSAY HAS BEEN VALIDATED AT [facility] FOR USE WITH NASAL AND NASOPHARYNGEAL SWAB SPECIMENS. INTERPRETIVE DATA TEST RESULTS SHOULD ALWAYS BE CONSIDERED IN THE CONTEXT OF CLINICAL OBSERVATIONS AND EPIDEMIOLOGICAL DATA IN MAKING FINAL DIAGNOSIS AND PATIENT MANAGEMENT DECISIONS. PATIENT MANAGEMENT SHOULD FOLLOW CURRENT CDC 4 of 8 GUIDELINES. THE DOM SARS ANTIGEN HEIDE DOES Narrative INFLUENZA VIRUS RAPID A/B Final HAILEY: 04/29/2024 04:00:00 EST MsgRcvd: 04/29/2024 05:30 EST Lab Test Result Reference Status Received Comments NEGATIVE 04/29/2024 INFLUENZA A Final [NEGATIVE 05:30 EST NEGATIVE 04/29/2024 INFLUENZA B Final [NEGATIVE 05:30 EST INTERNAL 04/29/2024 PASS Final NEG QC 05:30 EST INTERNAL 04/29/2024 PASS Final POS QC 05:30 EST EXTERNAL QC 04/29/2024 YES Final DONE? 05:30 EST 5 of 8 Narrative Lab Test Result Reference Status Received Comments A NEGATIVE TEST RESULT DOES NOT EXCLUDE INFECTION WITH INFLUENZA A OR B. THEREFORE, THE RESULTS OBTAINED FROM THIS FLU TEST SHOULD BE USED IN CONJUCTION WITH CLINICAL FINDINGS TO MAKE AN ACCURATE DIAGNOSIS. A POSITIVE RESULT DOES NOT RULE OUT CO-INFECTIONS WITH OTHER PATHOGENS OR IDENTIFY ANY SPECIFIC INFLUENZA A VIRUS 04/29/2024 SEND TO IC? NO Final SUBTYPE (more content not included)... Normal [facility] ED SUPER BILLon 04-29-2024 ED SUPER BILL [address] [address] [id number] 04/29/2024 Patient: OPAL QUINONES Sex: Female : 1995 Age: 28y Item Professional Category Description Facility Code Code Quantity Fee Total Nurse/E/M EMERGENCY 393767 1 $0.00 $0.00 DEPARTMENT VISIT MODERATE SEVERITY (50302-93) Nurse/Procedures Respiratory 380197 1 $0.00 $0.00 therapy - inhalation (65937) Grand Total $0.00 Providers Shamir Guzman D.O. Chief Complaint COUGH, SINUS PAIN, FEVER, CHILLS, MUSCLE ACHES and FLU. Principal Diagnosis 1 of 2 Superbill Bacterial pneumonia. ICD-10 Codes J15.9: Unspecified bacterial pneumonia 2 of 2 Normal [facility] ED VISIT SUMMARYon ED VISIT SUMMARY Visit Overview Visit Overview [address] [address] [id number] 04/29/2024 Patient: OPAL QUINONES Sex: Female : 1995 Age: 28y 04/29/2024 08:27 PM EST ED Arrival:03:26 04/29/2024 EST Status:not Recent Travel:no Language:eng Adv Directive: Isolation Status: Ethnicity:N Fall Risk:no risk Infectious Disease Exposure:no Measurements:5'4 / 162.6 Self-Harm Status:risk Sepsis Screen:negative cm 250.0 lb / 113.4 kg Chief Complaint:COUGH, (04/23/24), (Sonali Muñoz), (Pt c/o starting with a pressure type discomfort to her facial sinuses on 04/23/24 and then developed a cough on 04/28/24. ), and (Pt reports she has a pulse ox at home and tonight she noticed the level lesened to 72% when she walked to the bathroom. ) ALLERGIES No Known Drug Allergies 1 of 3 Visit Overview HOME MEDICATIONS albuterol sulfate HFA 90 mcg/actuation aerosol inhaler: 1 inhalation as needed. Robitussin Cough-Chest Congestion DM oral PAST MEDICAL HISTORY / PROBLEMS Asthma: Active Pneumonia See nurses notes PAST SURGICAL HISTORY ankle repair SOCIAL HISTORY Smoking status: Yes Alcohol use: Yes Drug use: Yes ED COURSE MEDICATIONS GIVEN IN EMERGENCY DEPARTMENT 03:52 04/29/24 Benzonatate (Tessalon) PO 200 mg 04:24 04/29/24 Albuterol-Ipratropium (DuoNeb) 3mg/0.5mg Neb Tx 3 mL 05:51 04/29/24 Azithromycin (Zithromax) PO 500 mg IV SITE INFORMATION INTAKE OUTPUT REASSESMENT (most recent) 05:15 04/29/24. The patient reports no complaints. ( Pt updated. Pt continues to have a occas cough). VITAL SIGNS First Vitals Last Vitals 2 of 3 Visit Overview First Vitals Last Vitals Temp 03:30 04/29/24 98.0 F Temp 03:30 04/29/24 98.0 F BP 03:30 04/29/24 138/87 BP 03:30 04/29/24 138/87 HR 03:30 04/29/24 93 HR 03:30 04/29/24 93 RR 03:30 04/29/24 16 RR 03:30 04/29/24 16 O2 Sat 03:04/29/24 98% O2 Sat 03:04/29/24 98% Pain 03:30 04/29/24 0 Pain 03:30 04/29/24 0 ETCO2 03:30 04/29/24 ETCO2 03:30 04/29/24 GCS 03:30 04/29/24 GCS 03:04/29/24 RTS 03:04/29/24 RTS 03:04/29/24 PROCEDURES NURSING INTERVENTIONS Respiratory therapy LABS / STUDIES LABS / STUDIES ORDERED Chest 1V Flu Swab (Influenzae AAg) Rapid COVID (SARS) ANTIGEN TEST CLINICAL IMPRESSION BACTERIAL PNEUMONIA 3 of 3 Normal [facility] ED VITALS FLOW SHEETon 04-29 ED VITALS FLOW SHEET Vitals [place] [address] [id number] 04/29/2024 Patient: OPAL QUINONES Sex: Female : 1995 Age: 28y Measurements Wt: 113.4 kg, Ht/Duncan: 64.0 in, BMI: 42.91 Measured Time BP MAP HR RR O2Sat ETCO2 Temp Pain GCS RTS 03:04/29/2024 138/87 104 93 16 98% 98.0 F 0 1 of 1 Normal [facility] INFLUENZA VIRUS RAPID A/Bon 04-29-2024 INFLUENZA VIRUS RAPID A/B INFLUENZA A NEGATIVE INFLUENZA B NEGATIVE INTERNAL NEG QC PASS INTERNAL POS QC PASS EXTERNAL QC DONE? YES SEND TO IC? NO A NEGATIVE TEST RESULT DOES NOT EXCLUDE INFECTION WITH INFLUENZA A OR B. THEREFORE, THE RESULTS OBTAINED FROM THIS FLU TEST SHOULD BE USED IN CONJUCTION WITH CLINICAL FINDINGS TO MAKE AN ACCURATE DIAGNOSIS. A POSITIVE RESULT DOES NOT RULE OUT CO-INFECTIONS WITH OTHER PATHOGENS OR IDENTIFY ANY SPECIFIC INFLUENZA A VIRUS SUBTYPE.CO-INFECTION WITH INFLUENZA A AND B IS RARE. IT IS RECOMMENDED THAT DUAL POSITIVE RESULTS BE CONFIRMED BY VIRAL CULTURE OR AN FDA-CLEARED INFLUENZA A AND B MOLECULAR ASSAY. INDIVIDUALS WHO HAVE RECEIVED NASALLY ADMINISTERED INFLUENZA A VACCINE MAY TEST POSITIVE IN COMMERCIALLY AVAILABLE INFLUENZA RAPID DIAGNOSTIC TESTS FOR UP TO THREE DAYS. RESULT CRITICAL? NO Normal [facility] Comment on above: Performed By: #### [id number] #### [facility],[address] [place] [address] US PELVIC TRANSABDOMINAL AND TRANSVAGINALon 01-16-2024 US PELVIC TRANSABDOMINAL AND TRANSVAGINAL EXAMINATION: US PELVIC TRANSABDOMINAL AND TRANSVAGINAL HISTORY: ORDERING SYSTEM PROVIDED HISTORY: heavy cycles, TECHNOLOGIST PROVIDED HISTORY: Illness/Other Reason for exam: heavy cycles Cancer History: u Surgery, RadiationHistory: ankle Encounter Type: Initial Additional signs and symptoms: n/a ORDERING SYSTEM PROVIDED DIAGNOSIS CODES: N92.0 Menorrhagia with regular cycle COMPARISON: None TECHNIQUE: Transabdominal and transvaginal scanning was performed FINDINGS: Scanning of the pelvis demonstrates an anteverted uterus measuring 7.4 x 5.1 x 4.4 cm. Within the myometrium of the fundus of uterus in the subserosal location is a 2.2 x 1.5 cm mixed echogenic solid area consistent with uterine fibroid. Endometrial complex measures 11 mm. Right ovary measures 3.2 x 3 x 2.1 cm. Within the right ovary is a 1.2 x 0.6 cm avascular complicated cystic lesion minimal fluid is in right adnexal region. Left ovary measures 2.7 x 1.8 x 1.3 cm. Follicles are noted. No masses are noted. Color flow is noted Nabothian cysts are noted IMPRESSION: 1. 2.2 cm fibroid involving the myometrium of the fundus of uterus posteriorly. 2. Normal endometrial complex. 3. Small complicated cystic lesion in the right ovary measuring 1.2 x 0.6 cm most consistent with a hemorrhagic follicle clinical correlation is suggested. 4. Minimal fluid was noted in the right adnexal region. 5. Normal-appearing left ovary. Workstation ID: [id number] Dictated by: SHAMIR SAMPSON on TueJan 17, 2024 8:02:15 AM EST Transcribed by: SHAMIR SAMPSON on TueJan 17, 2024 8:02:15 AM EST Finalized by: SHAMIR SAMPSON on TueJan 17, 2024 8:02:15 AM EST Normal [facility] Comment on above: Order Comment: Injur y/Trauma or Illness?:Illness/Other How long have you had these symptoms (acute/chronic)?:Acute Reason for exam?:heavy cycles History of cancer?:u Surgeries, chemotherapy, or radiation?:ankle Type of Exam?:Initial Additional signs and symptoms?:n/a ALGN FOOD ADULT/CHILDon 05-0 Clam IgE Qn (S) <0.35 Normal <0.35 [facility] Comment on above: Order Comment: Speci men Type: BLOOD SPECIMEN Ordering Facility: [facility] Address: [address] [place] [address] Performed By: #### F OMILES #### [facility] CLIA [id number] [address] [place] [address] [place] Clam IgE RAST class (S) Class 0 Normal Class 0 C [facility] Comment on above: Order Comment: Speci men Type: BLOOD SPECIMEN Ordering Facility: [facility] Address: [address] [place] [address] Performed By: #### F OODAD #### [facility] CLIA [id number] [address] [place] [address] [place] Codfish IgE Qn (S) <0.35 Normal <0.35 [facility] Comment on above: Order Comment: Speci men Type: BLOOD SPECIMEN Ordering Facility: [facility] Address: [address] [place] [address] Performed By: #### F OODAD #### [facility] CLIA [id number] [facility] [place] [address] [place] Codfish IgE RAST class (S) Class 0 Normal Class 0 [facility] Comment on above: Order Comment: Speci men Type: BLOOD SPECIMEN Ordering Facility: [facility] Address: [address] [place] [address] Performed By: #### F OODAD #### [facility] CLIA [id number] [address] [place] [address] [place] Mershon IgE Qn (S) <0.35 Normal <0.35 [facility] Comment on above: Order Comment: Speci men Type: BLOOD SPECIMEN Ordering Facility: [facility] Address: [address] [place] [address] Performed By: #### F OODAD #### [facility] CLIA [id number] [address] [place] [address] [place] Mershon IgE RAST class (S) Class 0 Normal Class 0 C [facility] Comment on above: Order Comment: Speci men Type: BLOOD SPECIMEN Ordering Facility: [facility] Address: [address] [place] [address] Performed By: #### F OODAD #### [facility] CLIA [id number] [address] [place] [address] [place] Cow milk IgE Qn (S) 0.41 kU/l High <0.35 [facility] Comment on above: Order Comment: Speci men Type: BLOOD SPECIMEN Ordering Facility: [facility] Address: [address] [place] [address] Performed By: #### F OODAD #### [facility] CLIA [id number] [address] [place] [address] [place] Cow milk IgE RAST class (S) Class 1 Abnormal Class 0 [facility] Comment on above: Order Comment: Speci men Type: BLOOD SPECIMEN Ordering Facility: [facility] Address: [address] [place] [address] Performed By: #### F OODAD #### [facility] CLIA [id number] [address] [place] [address] [place] Egg white IgE Qn (S) <0.35 Normal <0.35 [facility] Comment on above: Order Comment: Speci men Type: BLOOD SPECIMEN Ordering Facility: [facility] Address: [address] [place] [address] Performed By: #### F OODAD #### [facility] CLIA [id number] [address] [place] [address] [place] Egg white IgE RAST class (S) Class 0 Normal Class 0 [facility] Comment on above: Order Comment: Speci men Type: BLOOD SPECIMEN Ordering Facility: [facility] Address: [address] [place] [address] Performed By: #### F OODAD #### [facility] CLIA [id number] [address] [place] [address] [place] Peanut IgE Qn (S) <0.35 Normal <0.35 [facility] Comment on above: Order Comment: Speci men Type: BLOOD SPECIMEN Ordering Facility: [facility] Address: [address] [place] [address] Performed By: #### F OODAD #### [facility] CLIA [id number] [address] [place] [address] [place] Peanut IgE RAST class (S) Class 0 Normal Class 0 [facility] Comment on above: Order Comment: Speci men Type: BLOOD SPECIMEN Ordering Facility: [facility] Address: [address] [place] [address] Performed By: #### F OODAD #### [facility] CLIA [id number] [address] [place] [address] [place] Scallop IgE Qn (S) <0.35 Normal <0.35 [facility] Comment on above: Order Comment: Speci men Type: BLOOD SPECIMEN Ordering Facility: [facility] Address: [address] [place] [address] Performed By: #### F OODAD #### [facility] CLIA [id number] [address] [place] [address] [place] Scallop IgE RAST class (S) Class 0 Normal Class 0 [facility] Comment on above: Order Comment: Speci men Type: BLOOD SPECIMEN Ordering Facility: [facility] Address: [address] [place] [address] Performed By: #### F OODAD #### [facility] CLIA [id number] [address] [place] [address] [place] Shrimp IgE Qn (S) <0.35 Normal <0.35 [facility] Comment on above: Order Comment: Speci men Type: BLOOD SPECIMEN Ordering Facility: [facility] Address: [address] [place] [address] Performed By: #### F OODAD #### [facility] CLIA [id number] [address] [place] [address] [place] Shrimp IgE RAST class (S) Class 0 Normal Class 0 [facility] Comment on above: Order Comment: Speci men Type: BLOOD SPECIMEN Ordering Facility: [facility] Address: [address] [place] [address] Performed By: #### F OODAD #### [facility] CLIA [id number] [address] [place] [address] [place] Soybean IgE Qn (S) <0.35 Normal <0.35 [facility] Comment on above: Order Comment: Speci men Type: BLOOD SPECIMEN Ordering Facility: [facility] Address: [address] [place] [address] Performed By: #### F OODAD #### [facility] CLIA [id number] [address] [place] [address] [place] Soybean IgE RAST class (S) Class 0 Normal Class 0 [facility] Comment on above: Order Comment: Speci men Type: BLOOD SPECIMEN Ordering Facility: [facility] Address: [address] [place] [address] Performed By: #### F OODAD #### [facility] CLIA [id number] [address] [place] [address] [place] Kenton IgE Qn (S) <0.35 Normal <0.35 [facility] Comment on above: Order Comment: Speci men Type: BLOOD SPECIMEN Ordering Facility: [facility] Address: [address] [place] [address] Performed By: #### F OODAD #### [facility] CLIA [id number] [address] [place] [address] [place] Kenton IgE RAST class (S) Class 0 Normal Class 0 [facility] Comment on above: Order Comment: Speci men Type: BLOOD SPECIMEN Ordering Facility: [facility] Address: [address] [place] [address] Performed By: #### F OODAD #### [facility] CLIA [id number] [address] [place] [address] Wheat IgE Qn (S) 1.61 kU/l High <0.35 [facility] Comment on above: Order Comment: Speci men Type: BLOOD SPECIMEN Ordering Facility: [facility] Address: [address] [place] [address] Performed By: #### F OODAD #### [facility] CLIA [id number] [address] [place] [address] [place] Wheat IgE RAST class (S) Class 2 Abnormal Class 0 [facility] Comment on above: Order Comment: Speci men Type: BLOOD SPECIMEN Ordering Facility: [facility] Address: [address] [place] [address] Performed By: #### F OODAD #### [facility] CLIA [id number] [address] [place] [address] [place] COVID-19, MOLECULARon 2020 SARS-COV-2 (CEDEÑO ID) Not Detected Normal Not Detected [facility] Comment on above: Result Comment: This test was performed under the FDA's Emergency Use Authorization (EUA). Testing was performed using the Cedeño ID NOW COVID-19 assay on the ID NOW platform. This test has not been approved for use in asymptomatic patients and its performance in this patient population has not been evaluated. Negative results do not rule out the presence of SARS-CoV-2/COVID-19. Fact sheets for the EUA can be found at the following links: For Healthcare Providers: https://www.fda.gov/media/427408/download For Patients: https://www.fda.gov/media/187182/download Otheron 06-06-2020 [facility]rial [facility] P-R Interval [facility] Q-T Interval [facility] Q-T Interval (corrected) [facility] QRS Duration [facility] QTC Calculation (Bezet) [facility] R [facility] T [facility] Ventricular Rate [facility] Interpretation and review of laboratory results Normal [facility] SARS-CoV-2 Not Detected Not Detected [facility] Comment on above: This test was perfor med under the FDA's Emergency Use Authorization (EUA). Testing was performed using the Cedeño ID NOW COVID-19 assay on the ID NOW platform. This test has not been approved for use in asymptomatic patients and its performance in this patient population has not been evaluated. Negative results do not rule out the presence of SARS-CoV-2/COVID-19. Fact sheets for the EUA can be found at the following links: For Healthcare Providers: https://www.fda.gov/media/244374/download For Patients: https://www.fda.gov/media/002039/download EXAMINATION: XR CHES T AP/PA AND LAT HISTORY: ORDERING SYSTEM PROVIDED HISTORY: shortness of breath, TECHNOLOGIST PROVIDED HISTORY: Illness/Other Reason for exam: SOB Cancer History: u Surgery, RadiationHistory: ankle Encounter Type: Initial Additional signs and symptoms: rash ORDERING SYSTEM PROVIDED DIAGNOSIS CODES: R06.02 Shortness of breath COMPARISON: None. TECHNIQUE: PA and lateral views. FINDINGS: The lungs are clear. The cardiomediastinal configuration is within normal limits. No acute bony abnormalities. [facility] Amos, Arun In Fu ji Speechq - 06/06/2020 4:28 PM EDT EXAMINATION: XR CHEST AP/PA AND LAT HISTORY: ORDERING SYSTEM PROVIDED HISTORY: shortness of breath, TECHNOLOGIST PROVIDED HISTORY: Illness/Other Reason for exam: SOB Cancer History: u Surgery, RadiationHistory: ankle Encounter Type: Initial Additional signs and symptoms: rash ORDERING SYSTEM PROVIDED DIAGNOSIS CODES: R06.02 Shortness of breath COMPARISON: None. TECHNIQUE: PA and lateral views. FINDINGS: The lungs are clear. The cardiomediastinal configuration is within normal limits. No acute bony abnormalities. IMPRESSION: No acute cardiopulmonary abnormalities. Workstation ID: [id number] [facility] No acute cardiopulmonary abnormalities. Workstation ID: [id number] [facility] XR CHEST AP/PA AND LATon XR CHEST AP/PA AND LAT EXAMINATION: XR CHEST AP/PA AND LAT HISTORY: ORDERING SYSTEM PROVIDED HISTORY: shortness of breath, TECHNOLOGIST PROVIDED HISTORY: Illness/Other Reason for exam: SOB Cancer History: u Surgery, RadiationHistory: ankle Encounter Type: Initial Additional signs and symptoms: rash ORDERING SYSTEM PROVIDED DIAGNOSIS CODES: R06.02 Shortness of breath COMPARISON: None. TECHNIQUE: PA and lateral views. FINDINGS: The lungs are clear. The cardiomediastinal configuration is within normal limits. No acute bony abnormalities. IMPRESSION: No acute cardiopulmonary abnormalities. Workstation ID: [id number] Dictated by: TAYE BARNES on TueJun 06, 2020 4:25:45 PM EDT Transcribed by: TAYE BARNES on TueJun 06, 2020 4:25:45 PM EDT Finalized by: TAYE BARNES on TueJun 06, 2020 4:25:45 PM EDT Normal [facility] Comment on above: Order Comment: Injur y/Trauma or Illness?:Illness/Other How long have you had these symptoms (acute/chronic)?:Acute Reason for exam?:SOB History of cancer?:u Surgeries, chemotherapy, or radiation?:ankle Type of Exam?:Initial Additional signs and symptoms?:rash [facility] Surgical Pathology Department Name OPAL QUINONES Pathologist: ERNESTO VEE MD Date of Procedure: 01/08/2020 Date Received: 01/08/2020 Date Reported 01/15/2020 Submitting Physician: RODRICK AMADOR DPM Location: [facility] Surgical Copy To/Referring/Attending: RODRICK AMADOR DPM Other External # FINAL DIAGNOSIS A. RIGHT ANKLE TENOSYNOVITIS: -- FRAGMENTS OF MATURE ADIPOSE TISSUE AND FIBROADIPOSE TISSUE WITH FOCAL MINIMAL CHRONIC INFLAMMATION, NON-EPITHELIAL LINED CYST-LIKE SPACE, AND FOCAL FAT NECROSIS. Reported from: [place] [address] Electronically Signed Out By ERNESTO VEE MD/ATB By the signature on this report, the individual or group listed as making the Final Interpretation/Diagnosi s certifies that they have reviewed this case. Clinical History: Physician Contact Number: [id number] Fixative (A): Formalin Clinical Diagnosis History ANKLE TENOSYNOVITIS AND RIGHT ANKLE SPRAIN Specimens Submitted As: A: RIGHT ANKLE TENOSYNOVITIS Gross Description: Received in formalin, labeled with the patient's name and hospital number and Rt ankle tenosynovitis, are multiple segments of soft tissue and adipose tissue aggregating to 2.5 x 2.5 x 1.0 cm. The specimen is submitted in toto in 2 cassettes. SPEEDY esqueda/01/08/2020 [facility] Department of Pathology [address] [place] [address] [facility] Comment on above: Performed By: #### [facility] #### [facility] Surgical Pathology Department [id number] [place] [id number] History and Physical - Surgi mira Update < 30 dayson 01-07-2020 History and Physical - Surgical Update < 30 days History & Physical Reviewed: /Lactating: Are You no Are You Currently Breastfeedingno I have reviewed the History and Physical dated: 07-Jan-2020 History and Physical reviewed and relevant findings noted. Patient examined to review pertinent physical findings.: No significant changes Home Medications Reviewed: no changes noted Allergies Reviewed: no changes noted ERAS (Enhanced Recovery After Surgery): ERAS Patient: no Consent: COVID-19 Consent: COVID-19 Risk ConsentSurgeon has reviewed james risks related to the risk of juliet COVID-19 and if they contract COVID-19 what the risks are. Signatures/Attestation: Note Completion: Attending Provider Inpatient Certification StatementObservation patient/other outpatient visits Electronic Signatures: Rodrick Amador (STEPHANIE) (Signed 07-Jan-2020 11:39) Authored: History & Physical Reviewed, ERAS, Consent, Note Completion Last Updated: 07-Jan-2020 11:39 by Rodrick Amador (STEPHANIE) [facility] Preop Checkliston 01-07-2020 Preop Checklist Preop Checklist: Preop Checklist: Arrival [id number] Arrival Time10:34 Procedure Typeright ankle Temperature C36.4 degrees C Temperature F97.6 degrees F Heart Rate95 beats per minute Respiratory Rate16 breath per minute Blood Pressure Pjjqqqlg299 mm/Hg Blood Pressure Obvskkchk91 mm/Hg NPO [id number] 23:00 ID Band Onyes Allergy Bandno known allergies Consent Signedpending H&P Completepending Anesthesia Assessment Completedyes EKG Performednot ordered Chest X-Ray Performednot ordered HCG Urine TestN/A Chlorhexadine Bath Givennot applicable Nasal Antiseptic Appliednot applicable Hair Washednot applicable Soap and water bath with hair shampoo the night before surgerynot applicable Hat placed on infant prior to transportnot applicable SCD's Appliedyes NEAL Hose Appliednot ordered Denturesnot applicable Prostheticsnot applicable Hearing Aidsnot applicable Valuables Securednot applicable Glasses / Contactsleft in patient room to pacu Bowel Prepno Cardiovascular Assessment: Apicalregular Extremitieswarm, well perfused Respiratory Assessment: Respirationsregular Air Exchangeequal Breath Soundsclear Neurological Assessment: Level of Consciousnessalert Mobilitymoves all extremities Able to Express Selfyes Age Appropriateyes Emotional Statuscalm Preop Education: Surgical Site Infection Preventionyes Pain Scales and Managementno Language / Communication: Language / CommunicationEnglish Electronic Signatures: Cherie Desouza (NEIL) (Signed 07-Jan-2020 10:37) Authored: Preop Checklist Last Updated: 07-Jan-2020 10:37 by Cherie Desouza (NEIL) Normal [facility] CORONAVIRUS 2019, SCREEN ASY MPTOMATICon 01-06-2020 CORONAVIRUS 2019,PCR NOT DETECTED Normal Not Detected [facility] Comment on above: Result Comment: . This assay is designed to detect the N, ORF1ab and/or S genes of SARS-CoV-2 via nucleic acid amplification. A Negative (NOT DETECTED) result does not preclude 2019-nCoV infection since the adequacy of sample collection and/or low viral burden may result in presence of viral nucleic acids below the clinical sensitivity of this test method. Negative (NOT DETECTED) result should not be used as the sole basis for treatment or other patient management decisions. Rather negative results should be combined with clinical observations, patient history, and epidemiological information to make patient management decisions. Fact sheet for providers: https://www.fda.gov/media/850809/download Fact sheet for patients: https://www.fda.gov/media/064830/download This test has received FDA Emergency Use Authorization (EUA) and has been verified by [facility] ([facility]). This test is only authorized for the duration of time that circumstances exist to justify the authorization of the emergency use of in vitro diagnostic tests for the detection of SARS-CoV-2 virus and/or diagnosis of COVID-19 infection under section 564(b)(1) of the Act, 21 U.S.C. 360bbb-3(b)(1), unless the authorization is terminated or revoked sooner. [facility] is certified under CLIA-88 as qualified to perform high complexity testing. Testing is performed in the [facility] laboratories [place] [address] [place] [address]. Performed By: #### C OVSC #### [facility] [address] [place] [address] CORONAVIRUS 2019, SCREEN ASY MPTOMATICon 01-05-2020 Lab Specimen Source Nasal, Nasopharyngeal Normal [facility] Comment on above: Performed By: #### C OVSC #### [facility] [address] [place] [address] Patient Profile - Preop v2on 01-01-2020 Patient Profile - Preop v2 Profile: Initial Info: How to be Addresseddreama Spoken Language PreferredEnglish Source of Informationpatient Are you currently using the Personal Electronic Health Record or [facility] Are you interested in learning more about [facility] for the management of your healthnot at this time Instructions Givenappropriate clothing, center location, bring responsible adult as the skip load driver (procedure may be cancelled if no skip load driver) Prep Instructions Reviewedyes Instructed to Have No Fluids Aftermidnight Stated Reason for Admissionankle surgery Primary Contact Name and NumberJenny Patient Belongingsremains with patient Patient Belongings Remaining with Patientclothing Medications Brought to Hospitalno General Health: Weight in kg126.6 kilogram(s) Weight in mae299.1 pound(s) Weight Methodactual (measured) Scale Typestanding Height in feet5 feet Height in inches4 inch(es) Height in cm162.5 centimeter(s) Height Methodstated BMI (kg/m2)47.943 square meter Patient or Family Member Reaction to Anesthesiano previous reaction; no previous family member reaction Relationship/Environ: Resource/Environmental Concernsnone Substance: Current or Former Substance Use never: Cigarette/Tobacco, e-Cigarette/Vaping, Street Drugs YES: Alcohol Alcohol Use Statuscurrent alcohol Alcohol Amount1-2 drinks Alcohol Frequency2-4 times/month Risk Screens: COVID-19 Screening Completedno exposure or symptoms Advance Directive/DNRno Advance Directive Information Givenpatient/family declined During the past month, have you often been bothered by feeling down, depressed or hopelessno During the past month, have you often had little interest or pleasure in doing thingsno Have you had any thoughts of harming yourselfno Have you had any thoughts of harming anyone elseno Are you or have you been threatened or abused physically,emotionally or sexually abused by anyoneno Do you feel UNSAFE going back to the place you are livingno Patient is Able to be Assessed for Learningyes Factors Influencing Readiness to Learnanxiety Factors that Impact Ability to Learnnone Devices/Methods Used to Communicatenone Learning Preferencesverbal instruction; individual instruction Cultural Considerationsnone Developmental Considerationsnone Anabaptism Considerationsnone Other learner availableno Falls RiskPatient location auto qualifies him/her for HIGH RISK. Are there any cultural, spiritual, confucianism practices/values/needs that are important for us to knowno Do you want a visit/item from [facility]o Would you like your Management Development Specialist/Rheumatologist notifiedno Pain Scalenumerical 0-10 Pain Scale Educationteaching provided Current Pain Level5 = Moderate Acceptable Pain Level5 = Moderate Chronic Painno Information Review: Allergies, Home Meds and Significant Events have been Reviewed and Verified with Patient/Familyyes Allergy, Intolerance, Adverse Event: Allergies: NKDA: Active Pineapple: Food, Hives/Urticaria, Active Intolerances: Ragweed: Environment, Congestion, Active Problem List: Medical History: Asthma: Catalog Name: Unspecified asthma, uncomplicated Electronic Signatures: Cherie Desouza (RN) (Signed 07-Jan-2020 10:29) Authored: Initial Info, General Health, Relationship/Environ, Risk Screens, Additional Information Mallika Childress) (Signed 01-Jan-2020 12:34) Authored: Initial Info, General Health, Substance, Risk Screens, Additional Information Last Updated: 07-Jan-2020 10:29 by Cherie Desouza (NEIL) Normal [facility] CORONAVIRUS 2019, SCREEN ASY MPTOMATICon 12-28-2019 DATE OF PROCEDURE [YYYYMMDD]? 2020-01-[address] [facility] Comment on above: Performed By: #### C OVSC #### [facility] [address] [place] [address] EMPLOYED IN HEALTHCARE? Unknown Normal [facility] Comment on above: Performed By: #### C OVSC #### [facility] [address] [place] [address] FIRST COVID NASAL SWAB TEST? Unknown Normal [facility] Comment on above: Performed By: #### C OVSC #### [facility] [address] [place] [address] HOSPITALIZED (OR PLANNED TO BE ADMITTED)? Unknown Normal [facility] Comment on above: Performed By: #### C OVSC #### [facility] [address] [place] [address] ICU? Unknown Normal [facility] Comment on above: Performed By: #### C OVSC #### [facility] [address] [place] [address] ? Unknown [address] [facility] Comment on above: Performed By: #### C OVSC #### [facility] [address] [place] [address] REQUIRED FOR PROCEDURE/SURGERY? Yes Normal [facility] Comment on above: Performed By: #### C OVSC #### [facility] [address] [place] [address] RESIDENT IN CONGREGATE CARE SETTING? Unknown Normal [facility] Comment on above: Performed By: #### C OVSC #### [facility] [address] [place] [address] SYMPTOMATIC DEFINED BY CDC? Unknown Normal [facility] Comment on above: Performed By: #### C OVSC #### [facility] [address] EMPLOYEE? Unknown Normal [facility] Comment on above: Performed By: #### C OVSC #### [facility] [address] [place] [id number] POCT URINALYSIS DIPSTICK AUT OMATED W/O SCOPon 02-05-2018 Amorphous sediment LM Ql (Urine sed) Invalid Interpretation Code [facility] Work Phone: Appearance Nom (Body fld) cloudy Invalid Interpretation Code [facility] Work Phone: Bacteria LM Ql (Urine sed) Invalid Interpretation Code [facility] Work Phone: Bilirubin Ql (U) Negative Invalid Interpretation Code [facility] Work Phone: Casts LM.LPF #/area (Urine sed) Invalid Interpretation Code [facility] Work Phone: Color Nom (U) yellow Invalid Interpretation Code [facility] Work Phone: Crystals LM Nom (Urine sed) Invalid Interpretation Code [facility] Work Phone: Epithelial cells.squamous LM.HPF #/area (Urine sed) Invalid Interpretation Code [facility] Work Phone: Flow cytometry specialist review Interp Kavon (Unsp spec) Invalid Interpretation Code [facility] Work Phone: Ketones mass conc Negative Invalid Interpretation Code mg/dL [facility] Work Phone: Leukocyte esterase Qn (U) Invalid Interpretation Code [facility] Work Phone: Leukocyte esterase Test strip Ql (U) Negative Invalid Interpretation Code [facility] Work Phone: Nitrite Ql (U) Negative Invalid Interpretation Code [facility] Work Phone: pH (U) 5.5 Invalid Interpretation Code [facility] Work Phone: POCT GLUCOSE, URINE Negative Invalid Interpretation Code mg/dL [facility] Work Phone: Protein Ql (U) Negative Invalid Interpretation Code mg/dL [facility] Work Phone: RBC LM.HPF #/area (Urine sed) Invalid Interpretation Code [facility] Work Phone: RBC Ql (U) Negative Invalid Interpretation Code [facility] Work Phone: Specific gravity Relative Density (U) >=1.030 Invalid Interpretation Code [facility] Work Phone: Transitional cells LM Ql (Urine sed) Invalid Interpretation Code [facility] Work Phone: Urobilinogen mass conc (U) 0.2 Invalid Interpretation Code [facility] Work Phone: WBC LM.HPF #/area (Urine sed) Invalid Interpretation Code [facility] Work Phone: Vital Signs Date Time Vital Sign Value Performing Clinician Facility 09-11-2024 07:27-0400 Body height 162.56 cm Sonali Muñoz ACCOUNT AUDITOR-C Work Phone: [facility] 09-11-2024 07:27-0400 Body mass index (BMI) [Ratio] 45.8 kg/m2 Sonali Muñoz ACCOUNT AUDITOR-C Work Phone: [facility] 09-11-2024 07:27-0400 Body temperature 96.7 [degF] Sonali Muñoz ACCOUNT AUDITOR-C Work Phone: [facility] 09-11-2024 07:27-0400 Body weight 121.1 kg Sonali Muñoz ACCOUNT AUDITOR-C Work Phone: [facility] 09-11-2024 07:27-0400 Diastolic blood pressure 90 mm[Hg] Sonali Muñoz ACCOUNT AUDITOR-C Work Phone: [facility] 09-11-2024 07:27-0400 Heart rate 82 /min Sonali Muñoz ACCOUNT AUDITOR-C Work Phone: [facility] 09-11-2024 07:27-0400 Respiratory rate 16 /min Sonali Muñoz ACCOUNT AUDITOR-C Work Phone: [facility] 09-11-2024 07:27-0400 SaO2% (BldA) [Mass fraction] 98 % Sonali Muñoz ACCOUNT AUDITOR-C Work Phone: [facility] 09-11-2024 07:27-0400 Systolic blood pressure 127 mm[Hg] Sonali KENDRICK Work Phone: [facility] 01-28-2023 00:12-0500 Heart rate 71 /min [facility] 01-28-2023 00:12-0500 Respiratory rate 18 /min [facility] 01-28-2023 00:12-0500 SaO2% (BldA) [Mass fraction] 98 % [facility] 01-27-2023 23:08-0500 Body height 162.56 cm [facility] 01-27-2023 23:08-0500 Body mass index (BMI) [Ratio] 44.4 kg/m2 [facility] 01-27-2023 23:08-0500 Body temperature 98.2 [degF] [facility] 01-27-2023 23:08-0500 Body weight 117.5 kg [facility] 01-27-2023 23:08-0500 Diastolic blood pressure 98 mm[Hg] [facility] 01-27-2023 23:08-0500 Systolic blood pressure 143 mm[Hg] [facility] 06-06-2020 16:33-0400 Pulse (Heart Rate) 89 /min [facility] Comment on above: Recheck [facility] 06-06-2020 15:48-0400 BMI (Body Mass Index) 42.91 kg/m2 [facility] 06-06-2020 15:48-0400 Body Temperature 98.01 [degF] [facility] 06-06-2020 15:48-0400 Body weight 113.[address] [facility] 06-06-2020 15:48-0400 BP Diastolic 84 mm[Hg] [facility] 06-06-2020 15:48-0400 BP Systolic 120 mm[Hg] [facility] 06-06-2020 15:48-0400 Height 162.[address] [facility] 06-06-2020 15:48-0400 Pulse Oximetry 96 % [facility] 06-06-2020 15:48-0400 Respiratory Rate 16 /min Judit [facility] 02-05-2018 10:23-0500 BMI (Body Mass Index) 43.1 kg/m2 [facility] Work Phone: 02-05-2018 10:23-0500 Body Temperature 97.59 [degF] [facility] Work Phone: 02-05-2018 10:23-0500 BP Diastolic 58 mm[Hg] [facility] Work Phone: 02-05-2018 10:23-0500 BP Systolic 124 mm[Hg] [facility] Work Phone: 02-05-2018 10:23-[address] [facility] Work Phone: 02-05-2018 10:23-0500 Pulse (Heart Rate) 69 /min [facility] Work Phone: 02-05-2018 10:23-0500 Pulse Oximetry 96 % [facility] Work Phone: 02-05-2018 10:23-0500 Respiratory Rate 17 /min [facility] Work Phone: 02-05-2018 10:23-[address] [facility] Work Phone: Encounters Encounter Date Encounter Type Care Provider Facility Start: 09-26-2024 ambulatory Meño Sampson Facility:[facility] Start: 09-11-2024 End: 09-11-2024 ambulatory Sonali Muñoz ACCOUNT AUDITOR-C Work Phone: -Laboratory Start: 09-11-2024 End: 09-11-[address] Meño Sampson DO -Laboratory Work Phone: Start: 09-11-2024 End: 09-11-[address] Meño Sampson DO -[facility] Work Phone: Start: 09-11-2024 End: 09-11-2024 ambulatory Sonali Muñoz ACCOUNT AUDITOR-C Work Phone: -[facility] Start: 09-11-2024 End: 09-11-2024 ambulatory Sonali Muñoz ACCOUNT AUDITOR Facility:[facility] Start: 04-29-2024 End: 04-29-2024 Emergency department patient visit [facility] Start: 01-16-2024 End: 01-16-2024 ambulatory [facility] Start: 01-27-2023 End: 01-28-2023 Emergency department patient visit [facility] Work Phone: Start: 03-24-2022 End: 03-24-2022 ambulatory RAYMOND [facility] Start: 02-25-2022 End: 02-25-2022 ambulatory NORMAN ECHAVARRIA II Facility:[facility] Start: 02-23-2022 End: 02-23-2022 ambulatory OSEAS ECHAVARRIA Facility:[facility] Start: 07-08-2020 End: 07-12-2020 ambulatory CARLEEN ROBLES [facility] Start: 06-16-2020 End: 06-20-2020 ambulatory RAYMOND [facility] Start: 06-06-2020 End: 06-10-2020 Patient encounter procedure JUDIT FRANK [facility] Start: 06-06-2020 End: 06-06-2020 Office outpatient visit 25 minutes Judit Frank Work Phone: [facility] Comment on above: Fatigue, unspecified type (Primary Dx); Rhinorrhea; Nasal congestion; Chills; Hives; Shortness of breath; Palpitations; Abnormal ECG Start: 11-15-2019 End: 11-15-2019 Office outpatient visit 25 minutes Janice Velarde Work Phone: [facility] Comment on above: Left otitis media, u nspecified otitis media type (Primary Dx); Dysfunction of left eustachian tube; Asthma, exercise induced Start: 02-05-2018 Patient encounter procedure NATIVIDAD HENRY [facility] Start: 02-05-2018 End: 02-05-2018 Office outpatient visit 15 minutes Natividad Henry Work Phone: [facility] Comment on above: Moderate cramps with menses (Primary Dx) Procedures Date Procedure Procedure Detail Performing Clinician Start: 09-11-2024 Alternaria alternata MELISSA Muñoz ACCOUNT AUDITOR-C Work Phone: Start: 09-11-2024 Bhutanese cockroach RAST Sonali Muñoz ACCOUNT AUDITOR-C Work Phone: Start: 09-11-2024 Box elder MELISSA Muñoz ACCOUNT AUDITOR-C Work Phone: Start: 09-11-2024 Cat dander MELISSA Oates ACCOUNT AUDITOR-C Work Phone: Start: 09-11-2024 [place] RASJad hernandez ACCOUNT AUDITOR-C Work Phone: Start: 09-11-2024 Common ragweed RAST Sd Muñoz ACCOUNT AUDITOR-C Work Phone: Start: 09-11-2024 Common silver birch RAST Sonali Muñoz ACCOUNT AUDITOR-C Work Phone: Start: 09-11-2024 House dust mite (Df) RAST Sonali Muñoz ACCOUNT AUDITOR-C Work Phone: Start: 09-11-2024 Mouse urine proteins RASJad Muñoz ACCOUNT AUDITOR-C Work Phone: Start: 09-11-2024 Pecan nut MELISSA Muñoz ACCOUNT AUDITOR-C Work Phone: Start: 09-11-2024 Penicillium chrysoge num RASJad Muñoz ACCOUNT AUDITOR-C Work Phone: Start: 09-11-2024 Belarusian thistle MELISSA Morales ACCOUNT AUDITOR-C Work Phone: Start: 09-11-2024 Tree pollen MELISSA Escamilla ACCOUNT AUDITOR-C Work Phone: Start: 09-11-2024 [place] pollen MELISSA Escamilla ACCOUNT AUDITOR-C Work Phone: Start: 06-06-2020 12 lead ECG Judit hollandana Marlin Work Phone: Start: 06-06-2020 Standard chest X-ray Pa lino Frank Work Phone: Start: 06-06-2020 COVID-19, MOLECULAR Pat dena Frank Work Phone: Start: 06-06-2020 COVID-19/INFLUENZA O RDER ALGORITHM Judit Viki Frank Work Phone: Start: 11-15-2019 [facility] Start: 02-05-2018 End: 02-05-2018 Urnls dip stick/tablet rgnt auto w/o microscopy Natividad Henry Work Phone: Plan of Treatment Date Care Activity Detail Author Start: 10-01-2024 Walking distance 6 minutes [facility] Start: 09-26-2024 Measurement of respiratory function [facility] Start: 01-27-2023 [facility] Start: 09-09-2021 Tetanus vaccination Tetanus: Every 10yrs [facility] Start: 11-14-2020 Adolescent depression screening assessment Depression Screening (PHQ9) [facility] Start: 11-14-2020 Depression screening using PHQ-9 (Patient Health Questionnaire 9) score Depression Screening (PHQ9) [facility] Start: 06-17-2020 COVID-19 Vaccine (2 - Pfizer 2-dose series) COVID-19 Vaccine (2 - Pfizer 2-dose series) [facility] Start: 10-30-2019 Influenza vaccination given Sequential Influenza Vaccine (#1) [facility] Start: 10-29-2017 Influenza vaccination INFLUENZA VACCINE (#1) [facility] Work Phone: Start: 09-18-2016 Screening for malignant neoplasm of cervix PAP SMEAR DISCUSSION [facility] Work Phone: Start: 09-18-2014 Third diphtheria, tetanus and acellular pertussis (DTaP) vaccination TDAP (ADULT) [facility] Work Phone: Start: 09-18-2013 GONORRHEA SCREEN GONORRHEA SCREEN [facility] Work Phone: Start: 09-18-2013 Tetanus vaccination TETANUS [facility] Work Phone: Start: 2011 Screening for Chlamydia trachomatis CHLAMYDIA SCREEN [facility] Work Phone: Start: 09-18-2008 HIV screening HIV SCREENING DISCUSSION [facility] Work Phone: Start: 09-18-2006 Vaccination for human papillomavirus [facility] Work Phone: Start: 09-18-1998 History and physical examination, annual for health maintenance Wellness Visit [facility] Start: 1995 Screening for malignant neoplasm of cervix Pap Smear [facility] CBC W Auto Different ial panel - Blood [facility] IgE [Units/volume] i n Serum or Plasma [facility] Measurement of respi ratory function [facility] Patient Education ED Concussion ED Scalp Contusion ED Head Injury (Adult) [facility] Work Phone: Walking distance 6 [address] [facility] Immunizations Immunization Date Immunization Notes Care Provider Galen hilliard 09-10-2011 hepatitis A vaccine, adult dosage [facility] 09-10-2011 hepatitis A vaccine, pediatric/adolescent dosage, 2 dose schedule Judit Frank [facility] 09-10-2011 meningococcal polysa ccharide (groups A, C, Y and W-135) diphtheria toxoid conjugate vaccine (MCV4P) [facility] 09-10-2011 tetanus toxoid, redu corina diphtheria toxoid, and acellular pertussis vaccine, adsorbed [facility] 09-10-2011 varicella virus vaccine [facility] 01-07-2009 novel influenza-H1N1 -09, preservative-free, injectable [facility] 11-08-2002 varicella virus vaccine [facility] 06-21-2001 diphtheria, tetanus toxoids and acellular pertussis vaccine, unspecified formulation [facility] 06-21-2001 measles, mumps and r ubella virus vaccine [facility] 06-21-2001 poliovirus vaccine, inactivated [facility] 01-29-1999 diphtheria, tetanus toxoids and acellular pertussis vaccine, unspecified formulation [facility] 01-23-1997 haemophilus influenz ae type b conjugate and Hepatitis B vaccine [facility] 01-23-1997 measles, mumps and r ubella virus vaccine [facility] 05-16-1996 diphtheria, tetanus toxoids and acellular pertussis vaccine, unspecified formulation [facility] 05-16-1996 haemophilus influenz ae type b vaccine, HbOC conjugate [facility] 05-16-1996 trivalent poliovirus vaccine, live, oral [facility] 03-14-1996 DTP-Haemophilus infl uenzae type b conjugate vaccine [facility] 03-14-1996 hepatitis B vaccine, pediatric or pediatric/adolescent dosage [facility] 03-14-1996 trivalent poliovirus vaccine, live, oral [facility] 01-11-1996 DTP-Haemophilus infl uenzae type b conjugate vaccine [facility] 01-11-1996 hepatitis B vaccine, pediatric or pediatric/adolescent dosage [facility] 01-11-1996 trivalent poliovirus vaccine, live, oral [facility] Payers Date Payer Category Payer Self-pay 2024 Unknown [id number] 2019 Unknown [employer]MO [employer] PPO [id number] 2019-Present [id number] 2019 Unknown [id number] 2017 Unknown [id number] 1995 Unknown [id number] 1995 Unknown [id number] 1995 Unknown [id number] 1995 Unknown [id number] 1995 Unknown [id number] 1995 Unknown [id number] Unknown [id number] Unknown [id number] Unknown [id number] Unknown [id number] Social History Date Type Detail Facility Start: 02-05-2018 End: 01-27-2023 Tobacco smoking status NHIS Never smoker [facility] Sex Assigned At Not on file [facility] Work Phone: Start: 11-15-2019 End: 06-06-2020 Tobacco use and exposure Never used [facility] Start: 11-15-2019 End: 06-06-2020 Alcohol intake [facility] Start: 11-15-2019 History SDOH Social Connections Phone 3 [facility] Start: 11-15-2019 History SDOH Transpo rt Med 2 [facility] Start: 10-11-2017 Alcohol Comment ocassional [facility] Exposure to SARS-CoV -2 (event) Not sure [facility] Start: 01-28-2023 Tobacco smoking stat us VAIS Unknown if ever smoked [facility] Start: 1995 Sex Assigned At Female [facility] Evaluation note 09-11-2024 Note Date & Type Note Facility 09-11-2024 Evaluation note Diagnosis Onset Date Resolution Asthma chronic September 11 11:18am [facility] Work Phone: Clinical Note 04-29-2024 Note Date & Type Note Facility 04-29-2024 Note Discharge Instructio ns Discharge Summary [place] [address] [place] [id number] 04/29/2024 Patient: OPAL QUINONES Sex: Female : 1995 Age: 28y Thank you for visiting [facility]. You have been evaluated today by Shamir Guzman D.O. for the following condition(s): Principal Diagnosis Bacterial pneumonia. INSTRUCTIONS Take Tylenol (Acetaminophen) or Motrin (Ibuprofen) as needed for fever control. Take medication according to label instructions. (Take medication as prescribed.). Warnings: GENERAL WARNINGS: Return or contact your physician immediately if your condition worsens or changes unexpectedly, if not improving as expected, or if other problems arise. Prescription Medications: hydrocodone-homatropine 5 mg-1.5 mg/5 mL (5 mL) oral syrup: Take 5 ml by mouth every six hours as needed for cough, dispense 150 ml. Refills 0. Pharmacy: [facility] [id number] [place] [address]. azithromycin 500 mg tablet: Take 1 tablet by mouth once a day for 8 days, dispense 8 tablet. Refills 0. Pharmacy: [facility] [id number] [place] [address]. 1 of 6 Discharge Instructions Follow-up: Follow up with doctor in two weeks. Call for an appointment. Reason for referral: evaluation and treatment. Summary of care provided to patient. [facility], [address], [place], [place] [address]. . Understanding of the discharge instructions verbalized by patient. Follow-up with: Sonali Muñoz, GAGE, FURNACE CONVERTER, PRINT AND PATTERN DESIGNER-C, [facility], Phone: [phone], [address], [place] [address]. Follow up in four days. Call for an appointment. Reason for referral: evaluation and treatment. Summary of care provided to patient. You have been given the following additional information: Pneumonia (Adult) Patient Signature Facility Bottle Selector Date/Time General Instructions with ExitWriter [facility] [address] [place] [address] [phone] 04/29/2024 Patient: OPAL QUINONES Sex: Female : 1995 Age: 28y Thank you for visiting [facility]. You have been evaluated today by Shamir Guzman D.O. for the following condition(s): Principal Diagnosis Bacterial pneumonia. 2 of 6 Discharge Instructions INSTRUCTIONS Take Tylenol (Acetaminophen) or Motrin (Ibuprofen) as needed for fever control. Take medication according to label instructions. (Take medication as prescribed.). Warnings: GENERAL WARNINGS: Return or contact your physician immediately if your condition worsens or changes unexpectedly, if not improving as expected, or if other problems arise. Prescription Medications: hydrocodone-homatropine 5 mg-1.5 mg/5 mL (5 mL) oral syrup: Take 5 ml by mouth every six hours as needed for cough, dispense 150 ml. Refills 0. Pharmacy: [facility] [address] [place] [address]. azithromycin 500 mg tablet: Take 1 tablet by mouth once a day for 8 days, dispense 8 tablet. Refills 0. Pharmacy: [facility] [address] [place] [address]. Follow-up: Follow up with doctor in two weeks. Call for an appointment. Reason for referral: evaluation and treatment. Summary of care provided to patient. [facility], [address], [place], [place] [address]. . Understanding of the discharge instructions verbalized by patient. Follow-up with: Sonali Muñoz, GAGE, FURNACE CONVERTER, PRINT AND PATTERN DESIGNER-C, [facility] Family [facility], Phone: [phone], [address] [address]. Follow up in four days. Call for an appointment. Reason for referral: evaluation and treatment. Summary of care provided to patient. ADDITIONAL INFORMATION 3 of 6 Discharge Instructions Pneumonia (Adult) Pneumonia is an infection deep in the lungs. It is in the small air sacs (alveoli). It may be caused by a virus, fungus, or bacteria. Pneumonia caused by bacteria is often treated with an antibiotic. Severe cases may need to be treated in the hospital. Milder cases can be treated at home. Pneumonia symptoms are a lot like flu symptoms. They include fever, cough (dry or with phlegm), headache, muscle weakness, and pain. These symptoms often get worse in the first 2 days. But they often start to get better in the first week of treatment. Home care Follow these guidelines when caring for yourself at home: Get plenty of rest. Don't let yourself get overly tired when you go back to your activities. Partic (more content not included)... [facility] Discharge summary 01-27-2023 Note Date & Type Note Facility 01-27-2023 Discharge summary Note Date/Time January 27, 2023 11:52pm [facility] Medical Records Department [address] [place] [address] Emergency Department Summary 01/27/23 MR#: [id number] Acct: [id number] Name: OPAL QUINONES Rep #:[id number] : 1995 27 From: Pepe Cordero MD PCP: Status:PRE ER Location: ED HPI History of Present Illness Chief Complaint: Head Injury Narrative Narrative: 27-year-old female who denies significant past medical history presents with closed head injury that she sustained over 24 hours ago, yesterday morning. Shestates that she was getting out of the tub, and she fell. She slipped and hit the left side of her head against the floor, and hit the right side of her head against the toilet. There was no loss of consciousness. She presents today because she feels dazed, dizzy, and is having problems concentrating. She denies any profuse vomiting, tinnitus, or paresthesias of her arms or legs. Shedoes not take blood thinners. No neck pain or other symptoms. [facility] Medical History Asthma COVID Pneumonia Home Medications albuterol sulfate 0.63 mg/3 mL solution for nebulization 0.63 mg inhalation Q6H 08/12/22 [History Last Taken Unknown] Allergy/AdvReac Type Severity Reaction Status Date / Time pineapple Allergy Unknown itchy Verified 01/27/23 23:08 burning tongue wheat Allergy Unknown Hives Verified 01/27/23 23:08 ROS ROS ED ROS Narrative Constitutional: No fever, no chills. HEENT: No sore throat. No neck pain. No loss of vision. No rhinorrhea. Cardiovascular: No chest pain. No palpitations. No pedal edema. Respiratory: No cough, no shortness of breath. Abdominal: No abdominal pain. No nausea. No vomiting. Genitourinary: No dysuria. No hematuria. Musculoskeletal: No myalgias. No arthralgias. Neurologic: Positive for headaches. Positive dizziness and lightheadedness, positive brain fog and problems concentrating. Skin: No rash. No change in color. Psychiatric: No depression. No anxiety. EXAM Physical Exam Narrative Exam Narrative: Afebrile. Vital signs noted. HEENT: Normocephalic. PERRL, EOMI. Neck soft and supple. No point tenderness or step off. Mild tenderness to palpation right parietal scalp. Cardiovascular: Regular rate and rhythm. No murmurs, rubs, or gallops appreciated. Respiratory: No tachypnea. Lungs clear to auscultation bilaterally. Gastrointestinal: Abdomen soft, nontender, with normoactive bowel sounds. No rebound or guarding. Neurological: Awake. Alert. Nonfocal, nonlateralizing. Skin: No rash. Normal color. No pallor. Musculoskeletal: No pedal edema. Full range of motion extremities. Const Vital Signs: 01/27/23 23:08 Temperature 98.2 F Temperature Source Temporal Pulse Rate 94 Respiratory Rate 14 Blood Pressure 143/98 H Blood Pressure Mean 113 Pulse Ox 98 Oxygen Delivery Method Room Air MDM MDM MDM Narrative Medical decision making narrative: I do not feel CT of the brain is indicated. In the differential is mild concussion versus intracranial hemorrhage and skull fracture. However, the history and physical is not supportive of the latter 2. Her injury is greater than 24 hours old, almost 36 hours old. She will take gbun-zdk-qcriyxn medications and follow-up with her primary care provider. Activity will be as tolerated. I do not feel she requires observation. I do not feel laboratory work is indicated. Return instructions to the emergency department were reviewed. Disposition is discharged home in stable condition. Discharge Plan Triage Chief Complaint: Head Injury ED Provider: Pepe Cordero Dx/Rx/DC Orders Clinical Impression: Concussion, Contusion of scalp Instructions: ED Concussion, ED Scalp Contusion, ED Head Injury (Adult) Prescriptions: No Action albuterol sulfate 0.63 mg/3 mL solution for nebulization 0.63 mg inhalation Q6H Activity Restrictions/Additional Instructions: Follow-up with your primary care provider in the next 7 days if your symptoms persist. Use bjvc-qtt-onifbfq medications like Tylenol and ibuprofen for pain. Disposition Disposition: Home, Self Care What to do if you have Problems For any increased pain, shortness of breath, bleeding, nausea or vomiting, chestpain, or any unexpected problems, contact your Primary Care Provider. Call [facility] ([phone]) or report to the closest Emergency Room. Call 911 if necessary. 01/27/23 3951 <Electronically signed by Pepe Cordero MD> Cosigner Signature (if applicable): CC: ~ Signed [facility] Work Phone: Progress note 03-24-2022 Note Date & Type Note Facility 03-24-2022 Note HNO ID: [id number] Author: Norman Echavarria II, OD Service: ? Author Type: RADAR OPERATOR Type: Progress Notes Filed: 03/24/2022 12:00 PM Note Text: Assessment and Plan H52.13 Myopia, bilateral (primary encounter diagnosis) H52.223 Regular astigmatism, bilateral Comment: Patient instructed on handling and care of HGP contacts. Ok to start building wear time with original pair until new pair arrives. Recheck new pair fit 1-2 weeks after dispense. I have confirmed and edited as necessary the relevant ophthalmic history, ROS, and the neuro exam findings as obtained by others. I have seen and examined Opal Quinones. I have discussed the case and the management of this patient's care with the Resident/Fellow, if applicable. I also have reviewed and agree with the assessment and plan as stated above and agree with all of its relevant components. Norman Echavarria II, OD [facility] Progress note 02-23-2022 Note Date & Type Note Facility 02-23-2022 Note HNO ID: [id number] Author: Oseas Echavarria OD Service: ? Author Type: RADAR OPERATOR Type: Progress Notes Filed: 02/23/2022 5:33 PM Note Text: ASSESSMENT/PLAN: 1. Myopia, bilateral - ICD9: 367.1, ICD10: H52.13 (primary diagnosis) 2. Regular astigmatism, bilateral - ICD9: 367.21, ICD10: H52.223 Suggested updating her glasses as desired. Will order gas perm lenses to try. Will call when they are in and set up a dispensing time. Return when lenses come in. Oseas Echavarria, OD I have confirmed and edited as necessary the relevant ophthalmic history, ROS, and the neuro exam findings as obtained by others. I have seen and examined this patient. [facility] Evaluation note Note Date & Type Note Facility Evaluation note No assessment information availa ble [facility] Work Phone: Evaluation note Note Date & Type Note Facility Evaluation note Diagnosis Onset Date Resolution Asthma acute September 11 11:18am [facility] Work Phone: Hospital Discharge instructions Note Date & Type Note Facility Hospital Discharge instructions Additional Instructions Follow-up with your primary care provider in the next 7 days if your symptoms persist. Use konx-nua-nsbyjfw medications like Tylenol and ibuprofen for pain. [facility] Work Phone: Reason for referral (narrative) Note Date & Type Note Facility Reason for referral (narrative) No reason for referral information available [facility] Work Phone: Instructions * Patient Instructions - Natividad Henry APRN-ARNAV - 02/05/2018 10:59 AM EST Painful Menstrual Periods (Dysmenorrhea) Dysmenorrhea is the term used to describe painful menstrual periods. The uterus is a muscle. Normally, chemicals called prostaglandins cause the uterus to contract during your period. The contractions push out the build-up of tissue that occurs each month inside the uterus. If the contraction is very strong, it can cause pain. The pain may feel like cramping in the lower abdomen, lower back, or thighs. In severe cases, you may have other symptoms as well. These can include nausea, vomiting, loose stools, sweating, or dizziness. There are 2 types of dysmenorrhea: Primary dysmenorrhea refers to common menstrual cramps. It may begin 1 or 2 years after you first get your period. It may get better or go away as you get older or when you have a baby. The cramps are most often felt just before, or on the first day of your period. They may last 1 to 3 days. Treatment is with medicines and comfort measures as described below (see the Home care section). Secondary dysmenorrhea may start later in life. It describes menstrual pain that occurs due to an underlying health problem. The pain may last longer than common menstrual cramps. It may also worsen over time. Some problems that can lead to secondary dysmenorrhea include: Pelvic inflammatory disease (PID). Infection that involves the female reproductive organs, such as the uterus and fallopian tubes Fibroids. Benign growths within the wall of the uterus (not cancer) Endometriosis. Tissue that normally only lines the uterus also grows outside of it (because the abnormal tissue also swells and bleeds each month, it can cause pain) Once the cause of secondary dysmenorrhea is found, it can be treated. Your healthcare provider willdiscuss options with you as needed. Your care may also include some of the treatments described below (see the Home care section). Home care Medicines Certain medicines can help relieve or prevent menstrual pain and cramping. These can include: Nonsteroidal anti-inflammatory drugs (NSAIDs), such as ibuprofen Prescription pain medicine, if needed Hormone therapy (this includes most methods of hormonal control such as pills, shots, or a hormone-releasing IUD) General care To help relieve pain and cramping, try these tips: Rest as needed. Apply a heating pad to the lower belly or back as directed. A warm bath or massage to these areas may also help. Exercise regularly. Many women find that being more active each week helps reduce pain and cramping. Ask your healthcare provider for advice about other treatments you can try to help control pain andcramping. Follow-up care Follow up with your healthcare provider, or as advised. When to seek medical advice Call your healthcare provider right away if any of these occur: Fever of 100.4 F (38 C) or higher, or as directed by your provider Pain or cramping worsens or doesn t improve with medicine Pain or cramping lasts longer than usual or occurs between periods Unusual vaginal discharge between periods Bleeding becomes heavy (soaking more than 1 pad or tampon every hour for 3 hours) Passage of pink or rangel tissue from the vagina Date Last Reviewed: 11/28/201619999640-7163 [employer]. [address] [place] [address]. All rights reserved. This information is not intended as a substitute for professional medical care. Always follow yourhealthcare professional's instructions. in this encounter* Patient Instructions* Janice Velarde CNP - 11/15/2019 2:06 PM EDT Amoxicillin-antibiotic for ear infection.(possible sinus infection also) Flonase-use 2 sprays each nostril daily to help with eustachian tube dysfunction Call back if worse or not improving Renewed albuterol inhaler to use as needed for shortness of breath associated with exercise Flu vaccine recommended. HPV vaccine recommended. Pap test recommended She declines offer for HIV and Hepatitis C screening. documented in this encounter* Patient Instructions* Judit Frank CNP - 06/06/2020 4:48 PM EDT Please go directly to the [facility] ER for evaluation of heart palpitations, shortness of breath and ECG abnormalities as advised. documented in this encounter* Patient Instructions* Judit Frank CNP - 06/06/2020 4:48 PM EDT Please go directly to the [facility] ER for evaluation of heart palpitations, shortness of breath and ECG abnormalities as advised. documented in this encounter History of Present Illness * Natividad Henry APRN-CNP - 02/05/2018 10:10 AM EST History of Present Illness Patient is here for possible UTI. States that she is due to start her menses and has strong cramps.Gradually gets worse every month. She has not had a pap done. Reports that she used to be on control to help with her menstrual cramps. No vaginal discharge. No fevers. No vomiting. States thatthe pain comes in waves, makes her nauseous. There has been no syncope. Patient is not sexually active. Review of Systems Constitutional: Negative for chills and fever. Genitourinary: Positive for menstrual problem and pelvic pain. Negative for difficulty urinating, dyspareunia, flank pain, urgency, vaginal bleeding, vaginal discharge and vaginal pain. Vitals: Blood pressure 124/58, pulse 69, temperature 97.6 F (36.4 C), temperature source Temporal, resp. rate 17, height 1.626 m (5' 4), weight 113.9 kg (251 lb 1.6 oz), SpO2 96 %. Physical Exam Constitutional: She appears well-developed and well-nourished. HENT: Head: Normocephalic. Cardiovascular: Normal rate and regular rhythm. Pulmonary/Chest: Effort normal. Abdominal: Soft. Normal appearance and bowel sounds are normal. There is tenderness in the suprapubic area. There is no rigidity, no rebound, no guarding and no CVA tenderness. Skin: Skin is warm and dry. Assessment and Plan This is not an acute abdomen or vaginal concern today - urine is clean. Suggested that she obtain aOBGYN and or PCP for follow up. She denied any questions. * Natividad Henry APRN-CNP - 02/05/2018 10:10 AM EST On initial exam to room, patient is talking on cell phone. I told her I will be back to exam her when off phone. in this encounter* Janice Velarde CNP - 11/15/2019 1:44 PM EDT Patient: Opal Quinones : 1995 Date: 11/15/19 This 24 y.o. female presents for Otalgia (bilat ear pain for two weeks) History of Present Illness: Ears bothering for 2-3 weeks, more on the left. Sometimes is pain, more 'irritating.' Feels full, clogged. Can't hear completely out of it. Tried ibuprofen. Tried olive oil on cotton ball, and Tea Letty oil. Tried decongestant pills. Got a lot of ear infections as a kid. Some sinus drainage. Not blowing nose a lot. Some headache. More in the last couple days. More frontal and temples. Some popping and crackling of left ear. Requests a refill of inhaler for exercise induced asthma. Has issues if hiking in humidity. Plays volleyball too, sometime needs it. Has not used for quite a while. Past Medical/Surgical History: Past Medical History: Diagnosis Date Asthma History reviewed. No pertinent surgical history. Family History: Family History Problem Relation Age of Onset Diabetes Father Diabetes Paternal Grandmother Cancer Paternal Grandfather Social History: Social History Socioeconomic History Marital status: Single Spouse name: Not on file Number of children: Not on file Years of education: Not on file Highest education level: Not on file Occupational History Not on file Social Needs Financial resource strain: Not on file Food insecurity Worry: Not on file Inability: Not on file Transportation needs Medical: No Non-medical: No Tobacco Use Smoking status: Never Smoker Smokeless tobacco: Never Used Substance and Sexual Activity Alcohol use: Yes Comment: ocassional Drug use: No Sexual activity: Not on file Lifestyle Physical activity Days per week: Not on file Minutes per session: Not on file Stress: Not on file Relationships Social connections Talks on phone: Twice a week Gets together: Twice a week Attends confucianism service: Not on file Active member of club or organization: Not on file Attends meetings of clubs or organizations: Not on file Relationship status: Not on file Other Topics Concern Not on file Social History Narrative Not on file Allergies: Allergies Allergen Reactions Pineapple Tongue swelling Medications: Current Outpatient Medications Medication Sig Dispense Refill fexofenadine (JASPER) 180 MG tablet Take 180 mg by mouth daily. fluticasone propionate (FLONASE) 50 mcg/actuation nasal spray Instill 2 (two) sprays into each nostril daily . 16 g 12 albuterol 90 mcg/actuation inhaler Inhale 2 (two) puffs every 4 (four) hours as needed for wheezingor shortness of breath . 1 Inhaler 1 amoxicillin (AMOXIL) 500 MG capsule Take 1 (one) capsule (500 mg total) by mouth 3 (three) times a day for 10 days . 30 capsule 0 sod sejea-caoqzd-qvvxsh bottle (NEILMED SINUS RINSE COMPLETE) pkdv Instill 1 application into each nostril daily. (Patient not taking: Reported on 11/15/2019 .) 30 each 3 No current facility-administered medications for this visit. Review of Systems: Review of Systems Constitutional: Negative for chills and fever. HENT: Positive for ear pain, hearing loss, postnasal drip and tinnitus (little ringing started recently, diana.). Respiratory: Negative for cough and shortness of breath. Cardiovascular: Negative for chest pain. Neurological: Negative for dizziness and light-headedness. Headaches: frontal for a couple days. Physical Exam: Vital Signs: BP (P) 115/85 (BP Location: Left arm, Patient Position: Sitting, BP Cuff Size: X-large Adult) Pulse (P) 97 Ht (P) 5' 4 Wt (P) 126.4 kg (278 lb 9.6 oz) SpO2 (P) 96% BMI (P) 47.82 kg/m Physical Exam Constitutional: She is oriented to person, place, and time. She appears well- developed and well-nourished. HENT: Head: Normocephalic. Right Ear: Tympanic membrane, external ear and ear canal normal. Left Ear: External ear and ear canal normal. Nose: Nose normal. Mouth/Throat: Oropharynx is clear and moist. Left TM somewhat injected. Small amount of light cerumen left ear canal. Eyes: Conjunctivae are normal. Right eye exhibits no discharge. Left eye exhibits no discharge. Neck: No thyromegaly present. Difficult to assess, neck is wide and thicker, difficult to palpate well. Cardiovascular: Normal rate, regular rhythm and normal heart sounds. Pulmonary/Chest: Effort normal and breath sounds normal. No respiratory distress. She has no wheezes. Lymphadenopathy: She has no cervical adenopathy. Neurological: She is alert and oriented to person, place, and time. Skin: Skin is warm and dry. Psychiatric: She has a normal mood and affect. Her behavior is normal. Judgment and thought contentnormal. Assessment/Plan: Opal was seen today for otalgia. Diagnoses and all orders for this visit: Left otitis media, unspecified otitis media type - amoxicillin (AMOXIL) 500 MG capsule; Take 1 (one) capsule (500 mg total) by mouth 3 (three) timesa day for 10 days . Dysfunction of left eustachian tube - fluticasone propionate (FLONASE) 50 mcg/actuation nasal spray; Instill 2 (two) sprays into each nostril daily . Asthma, exercise induced - albuterol 90 mcg/actuation inhaler; Inhale 2 (two) puffs every 4 (four) hours as needed for wheezing or shortness of breath . Return if symptoms worsen or fail to improve. Patient Instructions Amoxicillin-antibiotic for ear infection.(possible sinus infection also) Flonase-use 2 sprays each nostril daily to help with eustachian tube dysfunction Call back if worse or not improving Renewed albuterol inhaler to use as needed for shortness of breath associated with exercise Flu vaccine recommended. HPV vaccine recommended. Pap test recommended She declines offer for HIV and Hepatitis C screening. For any new medications prescribed today, patient was educated about indications for the medication, how to take the medication and potential side effects of the medications. Goals None Depression Screening 11/15/2019 Little interest or pleasure in doing things 0 Feeling down, depressed, or hopeless 1 PHQ-2 Total Score 1 Trouble falling or staying asleep, or sleeping too much 0 Feeling tired or having little energy 1 Poor appetite or overeating 1 Feeling bad about yourself - or that you are a failure or have let yourself or your family down 0 Trouble concentrating on things, such as reading the newspaper or watching television 0 Moving or speaking so slowly that other people could have noticed. Or the opposite - being so fidgety or restless that you have been moving around a lot more than usual 0 Thoughts that you would be better off , or of hurting yourself in some way 0 PHQ-9 Total Score 3 documented in this encounter* Judit Frank CNP - 06/06/2020 3:47 PM EDT Patient Name: [facility] Location: [facility] [place] [address] [address] Date Of : Date Of Visit: 1995 06/06/2020 MRN# Provider: [id number] Judit Frank CNP Chief Complaint Patient presents with Rash got 1st vaccine on 05/27, itching and hives started the next day, feels out of breath while talking today, bilat ear fullness Assessment & Plan 1. Fatigue, unspecified type Covid-19/Influenza Order Algorithm 2. Rhinorrhea Covid-19/Influenza Order Algorithm 3. Nasal congestion Covid-19/Influenza Order Algorithm 4. Chills Covid-19/Influenza Order Algorithm 5. Hives Covid-19/Influenza Order Algorithm 6. Shortness of breath XR Chest AP/PA and LAT Ambulatory referral to Emergency Medicine 7. Palpitations ECG 12 Lead Ambulatory referral to Emergency Medicine 8. Abnormal ECG Ambulatory referral to Emergency Medicine No follow-ups on file. Medical Decision Making Client is non-toxic in NAD with multiple complaints. She declines ER transfer with heart palpitations and shortness of breath. She reports onset of intermittent hives the day after receiving the COVID vaccination. She has history of allergies so she has had some URI/allergy symptoms. She reports that she felt that her heart was pounding and racing at bedtime last night lasting about one hour and today she felt short of breath while talking or with exertion at work. Client denies heart palpitations, chest pain or chest tightness today. COVID - negative ECG - Abnormal findings Chest X-ray - negative Additional Clinical Comments Client instructed to go to the ER for additional work-up, evaluation and treatment. Client has no chest pain currently and no feeling of palpitations. She also has no shortness of breath while sitting. I feel she is stable to drive herself to the hospital but we did discuss transfer by squad. Client states she may not go to the ER. I am making the transfer/calls. I have advised her to go directlyto the ER for evaluation and treatment with abnormal ECG findings, palpitations and shortness of breath and reinforced need for further evaluation. Transfer Center notified. Subjective 24 y.o. female presents with Rash (got 1st vaccine on 05/27, itching and hives started the next day,feels out of breath while talking today, bilat ear fullness) Client with report of hives, shortness of breath, racing heart, chills, fatigue. Symptoms began after SARS vaccination 10 days ago. Client called PCP today and was instructed to go to the ER or . Client refuses ER transfer. Client has intermittent hives for 9 days. She has allergies and she has had fatigue, chills, runny nose, stuffy nose. She felt as if her heart was pounding and racing without pain or shortness of breath at bedtime last night. She felt like she was short of breath at work today talking. She reports her symptoms may be anxiety. She did not report symptoms to the vaccination clinic or [facility]. Rash This is a new problem. The current episode started 1 to 4 weeks ago. The problem has been waxing and waning since onset. The affected locations include the face (client reports she has had one hive on the forehead, one hive on her hand and one hive on a finger. Currently she has no rash. ). The rash is characterized by redness, swelling and itchiness. Associated with: COVID vaccination 10 days ago. Associated symptoms include congestion, fatigue, rhinorrhea and shortness of breath. Pertinent negatives include no cough, diarrhea, fever, sore throat or vomiting. Past treatments include antihistamine. The treatment provided moderate relief. Review Of Systems Review of Systems Constitutional: Positive for chills and fatigue. Negative for fever. HENT: Positive for congestion and rhinorrhea. Negative for sore throat. No new loss of taste or smell. Respiratory: Positive for shortness of breath. Negative for cough and chest tightness. Show Low short of breath today while talking at work. Cardiovascular: Positive for palpitations. Negative for chest pain. Show Low a pounding in her chest and racing of her heart at bedtime. Gastrointestinal: Positive for nausea. Negative for diarrhea and vomiting. Musculoskeletal: Negative for myalgias. Skin: Positive for rash. Neurological: Negative for headaches. Medical History Past Medical History: Diagnosis Date Asthma Cellulitis 2019 after ankle surgery in Dec 2019 Past Surgical History: Procedure Laterality Date ANKLE SURGERY Right december 2019 Patient Active Problem List Diagnosis Obesity, morbid, BMI 40.0-49.9 ([facility]) Social History Social History Tobacco Use Smoking status: Never Smoker Smokeless tobacco: Never Used Substance Use Topics Alcohol use: Yes Comment: ocassional Drug use: No Family History Family History Problem Relation Age of Onset Diabetes Father Diabetes Paternal Grandmother Cancer Paternal Grandfather Objective Physical Exam BP 120/84 Pulse 89 Comment: Recheck kmf Temp 98 F (36.7 C) (Infrared) Resp 16 Ht 5' 4 Wt113.4 kg (250 lb) LMP 05/23/2020 SpO2 96% No BMI 42.91 kg/m Vision/Hearing Exam:No exam data present Physical Exam Vitals signs and nursing note reviewed. Constitutional: General: She is not in acute distress. Appearance: Normal appearance. She is not ill-appearing, toxic-appearing or diaphoretic. HENT: Head: Normocephalic and atraumatic. Nose: Nose normal. No congestion or rhinorrhea. Mouth/Throat: Mouth: Mucous membranes are moist. Pharynx: Oropharynx is clear. No oropharyngeal exudate or posterior oropharyngeal erythema. Cardiovascular: Rate and Rhythm: Normal rate and regular rhythm. Heart sounds: Normal heart sounds. No murmur. No gallop. Pulmonary: Effort: Pulmonary effort is normal. No respiratory distress. Breath sounds: Normal breath sounds. No wheezing or rales. Skin: General: Skin is warm and dry. Comments: Client currently has no rash. Neurological: Mental Status: She is alert and oriented to person, place, and time. Psychiatric: Mood and Affect: Mood normal. Procedure Notes Procedures Results Recent Results (from the past 168 hour(s)) COVID-19, Molecular Collection Time: 06/06/20 4:15 PM Specimen: Nasopharyngeal; Swab Result Value Ref Range SARS-CoV-2 Not Detected Not Detected ECG 12 Lead Collection Time: 06/06/20 4:53 PM Result Value Ref Range Atrial Rate Ventricular Rate P-R Interval QRS Duration Q-T Interval Q-T Interval (corrected) QTC Calculation (Bezet) P Midland R Midland T Midland XR Chest AP/PA and LAT Final Result No acute cardiopulmonary abnormalities. Workstation ID: [id number] Orders Placed This Visit Orders Placed This Encounter Procedures Covid-19/Influenza Order Algorithm XR Chest AP/PA and LAT Ambulatory referral to Emergency Medicine COVID-19, Molecular ECG 12 Lead Medication List At End Of Visit Current Outpatient Medications Medication Sig Dispense Refill albuterol 90 mcg/actuation inhaler Inhale 2 (two) puffs every 4 (four) hours as needed for wheezingor shortness of breath . 1 Inhaler 1 fexofenadine (JASPER) 180 MG tablet Take 180 mg by mouth daily. fluticasone propionate (FLONASE) 50 mcg/actuation nasal spray Instill 2 (two) sprays into each nostril daily . 16 g 12 No current facility-administered medications for this visit. Patient Instructions Please go directly to the [facility] ER for evaluation of heart palpitations, shortness of breath and ECG abnormalities as advised. documented in this encounter* Judit Frank CNP - 06/06/2020 3:47 PM EDT Patient Name: [facility] Location: [facility] [address] [place] [id number] Date Of : Date Of Visit: 1995 06/06/2020 MRN# Provider: [id number] Judit Frank CNP Chief Complaint Patient presents with Rash got 1st vaccine on 05/27, itching and hives started the next day, feels out of breath while talking today, bilat ear fullness Assessment & Plan 1. Fatigue, unspecified type Covid-19/Influenza Order Algorithm 2. Rhinorrhea Covid-19/Influenza Order Algorithm 3. Nasal congestion Covid-19/Influenza Order Algorithm 4. Chills Covid-19/Influenza Order Algorithm 5. Hives Covid-19/Influenza Order Algorithm 6. Shortness of breath XR Chest AP/PA and LAT Ambulatory referral to Emergency Medicine 7. Palpitations ECG 12 Lead Ambulatory referral to Emergency Medicine 8. Abnormal ECG Ambulatory referral to Emergency Medicine No follow-ups on file. Medical Decision Making Client is non-toxic in NAD with multiple complaints. She declines ER transfer with heart palpitations and shortness of breath. She reports onset of intermittent hives the day after receiving the COVID vaccination. She has history of allergies so she has had some URI/allergy symptoms. She reports that she felt that her heart was pounding and racing at bedtime last night lasting about one hour and today she felt short of breath while talking or with exertion at work. Client denies heart palpitations, chest pain or chest tightness today. COVID - negative ECG - Abnormal findings Chest X-ray - negative Additional Clinical Comments Client instructed to go to the ER for additional work-up, evaluation and treatment. Client has no chest pain currently and no feeling of palpitations. She also has no shortness of breath while sitting. I feel she is stable to drive herself to the hospital but we did discuss transfer by squad. Client states she may not go to the ER. I am making the transfer/calls. I have advised her to go directlyto the ER for evaluation and treatment with abnormal ECG findings, palpitations and shortness of breath and reinforced need for further evaluation. Transfer Center notified. Subjective 24 y.o. female presents with Rash (got 1st vaccine on 05/27, itching and hives started the next day,feels out of breath while talking today, bilat ear fullness) Client with report of hives, shortness of breath, racing heart, chills, fatigue. Symptoms began after SARS vaccination 10 days ago. Client called PCP today and was instructed to go to the ER or . Client refuses ER transfer. Client has intermittent hives for 9 days. She has allergies and she has had fatigue, chills, runny nose, stuffy nose. She felt as if her heart was pounding and racing without pain or shortness of breath at bedtime last night. She felt like she was short of breath at work today talking. She reports her symptoms may be anxiety. She did not report symptoms to the vaccination clinic or [facility]. Rash This is a new problem. The current episode started 1 to 4 weeks ago. The problem has been waxing and waning since onset. The affected locations include the face (client reports she has had one hive on the forehead, one hive on her hand and one hive on a finger. Currently she has no rash. ). The rash is characterized by redness, swelling and itchiness. Associated with: COVID vaccination 10 days ago. Associated symptoms include congestion, fatigue, rhinorrhea and shortness of breath. Pertinent negatives include no cough, diarrhea, fever, sore throat or vomiting. Past treatments include antihistamine. The treatment provided moderate relief. Review Of Systems Review of Systems Constitutional: Positive for chills and fatigue. Negative for fever. HENT: Positive for congestion and rhinorrhea. Negative for sore throat. No new loss of taste or smell. Respiratory: Positive for shortness of breath. Negative for cough and chest tightness. Show Low short of breath today while talking at work. Cardiovascular: Positive for palpitations. Negative for chest pain. Show Low a pounding in her chest and racing of her heart at bedtime. Gastrointestinal: Positive for nausea. Negative for diarrhea and vomiting. Musculoskeletal: Negative for myalgias. Skin: Positive for rash. Neurological: Negative for headaches. Medical History Past Medical History: Diagnosis Date Asthma Cellulitis 2019 after ankle surgery in Dec 2019 Past Surgical History: Procedure Laterality Date ANKLE SURGERY Right december 2019 Patient Active Problem List Diagnosis Obesity, morbid, BMI 40.0-49.9 ([facility]) Social History Social History Tobacco Use Smoking status: Never Smoker Smokeless tobacco: Never Used Substance Use Topics Alcohol use: Yes Comment: ocassional Drug use: No Family History Family History Problem Relation Age of Onset Diabetes Father Diabetes Paternal Grandmother Cancer Paternal Grandfather Objective Physical Exam BP 120/84 Pulse 89 Comment: Recheck kmf Temp 98 F (36.7 C) (Infrared) Resp 16 Ht 5' 4 Wt113.4 kg (250 lb) LMP 05/23/2020 SpO2 96% No BMI 42.91 kg/m Vision/Hearing Exam:No exam data present Physical Exam Vitals signs and nursing note reviewed. Constitutional: General: She is not in acute distress. Appearance: Normal appearance. She is not ill-appearing, toxic-appearing or diaphoretic. HENT: Head: Normocephalic and atraumatic. Nose: Nose normal. No congestion or rhinorrhea. Mouth/Throat: Mouth: Mucous membranes are moist. Pharynx: Oropharynx is clear. No oropharyngeal exudate or posterior oropharyngeal erythema. Cardiovascular: Rate and Rhythm: Normal rate and regular rhythm. Heart sounds: Normal heart sounds. No murmur. No gallop. Pulmonary: Effort: Pulmonary effort is normal. No respiratory distress. Breath sounds: Normal breath sounds. No wheezing or rales. Skin: General: Skin is warm and dry. Comments: Client currently has no rash. Neurological: Mental Status: She is alert and oriented to person, place, and time. Psychiatric: Mood and Affect: Mood normal. Procedure Notes Procedures Results Recent Results (from the past 168 hour(s)) COVID-19, Molecular Collection Time: 06/06/20 4:15 PM Specimen: Nasopharyngeal; Swab Result Value Ref Range SARS-CoV-2 Not Detected Not Detected ECG 12 Lead Collection Time: 06/06/20 4:53 PM Result Value Ref Range Atrial Rate Ventricular Rate P-R Interval QRS Duration Q-T Interval Q-T Interval (corrected) QTC Calculation (Bezet) P Midland R Midland T Midland XR Chest AP/PA and LAT Final Result No acute cardiopulmonary abnormalities. Workstation ID: [id number] Orders Placed This Visit Orders Placed This Encounter Procedures Covid-19/Influenza Order Algorithm XR Chest AP/PA and LAT Ambulatory referral to Emergency Medicine COVID-19, Molecular ECG 12 Lead Medication List At End Of Visit Current Outpatient Medications Medication Sig Dispense Refill albuterol 90 mcg/actuation inhaler Inhale 2 (two) puffs every 4 (four) hours as needed for wheezingor shortness of breath . 1 Inhaler 1 fexofenadine (JASPER) 180 MG tablet Take 180 mg by mouth daily. fluticasone propionate (FLONASE) 50 mcg/actuation nasal spray Instill 2 (two) sprays into each nostril daily . 16 g 12 No current facility-administered medications for this visit. Patient Instructions Please go directly to the [facility] ER for evaluation of heart palpitations, shortness of breath and ECG abnormalities as advised. documented in this encounter Assessments Diagnosis Moderate cramps with menses - Primary Diagnosis Left otitis media, unspecified otitis media type- Primary Dysfunction of left eustachian tube Asthma, exercise induced Exercise induced bronchospasm Diagnosis Fatigue, unspecified type- Primary Rhinorrhea Other diseases of nasal cavity and sinuses Nasal congestion Other diseases of nasal cavity and sinuses Chills Chills (without fever) Hives Unspecified urticaria Shortness of breath Palpitations Abnormal ECG Nonspecific abnormal electrocardiogram (ECG) (EKG) Summary Purpose Family History No Family History Records FoundNo Family History Records FoundNo Family History Records FoundNo Family History Records FoundNo Family History Records FoundNo Family History Records FoundNo Family History Records FoundNo Family History Records FoundNo Family History Records FoundNo Family History Records Found Advance Directives No Advanced Directives Records FoundDocuments on File Type Date Recorded 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 Advance Directives and Living Will Documents on File Type Date Recorded 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 ARTHROSCOPY right ankle & BROSTRUM R ANKLE Anesthesia: Guillermo Weiner Estimated Blood Loss: 10cc Blood Replaced: [place] Findings: Much ankle tenosynovitis and laxity with chronic tearing to the ATFL Specimens(s) Collected: yes, Operative Report: Patient is a pleasant female with chronic right lateral ankle pain post injury nearly 3 years ago. In the last 2 years, she is tried and failed now 3 years of conservative therapy including NSAIDs steroids immobilization physical therapy lifestyle modification shoe gear modification all to no avail with the [place] pain altering her activities of daily li (more content not included)... Reason for Referral Status Reason Specialty Diagnoses / Procedures Referred By Contact Referred To Contact Authorized Specialty Services Required/Patien t's Best Interest Emergency Medicine Diagnoses Shortness of breath Palpitations Abnormal ECG Judit Frank, OPTICAL MANAGER [address] [place] [address] Chief Complaint and Reason for Visit Chief Complaint Admit Date Asthma September 11, 2024 11:1 8am INT LAB ORDERS September 11, 2024 12:4 8pm Reason for Visit Admit Date Asthma September 11, 2024 11:1 8am Chief Complaint CONCUSSION Chief Complaint Admit Date Asthma September 11, 2024 11:1 8am Additional Source Comments Reason for Visit (unrecogniz ed section and content) Reason Comments Pelvic Pain s/sx started suddenl y last night, states pain was so severe that she almost passed out, states could not walk last night without becoming very light headed. Pt states is about to start menses. Other pt states is not sex ually active, denies any possibility of Reason Comments Otalgia bilat ear pain for t wo weeks Reason Comments Rash got 1st vaccine on , itching and hives started the next day, feels out of breath while talking today, bilat ear fullness INFORMATION SOURCE (unrecogn ized section and content) DATE CREATED AUTHOR 02/07/2018 [facility] DATE CREATED AUTHOR AUTHOR'S ORGANIZ ATION 01/13/2020 [facility] DATE CREATED AUTHOR AUTHOR'S ORGANIZ ATION 01/16/2020 [facility] DATE CREATED AUTHOR AUTHOR'S ORGANIZ ATION 06/10/2020 [facility] DATE CREATED AUTHOR AUTHOR'S ORGANIZ ATION 07/14/2020 [facility] DATE CREATED AUTHOR AUTHOR'S ORGANIZ ATION 03/24/2022 [facility] DATE CREATED AUTHOR AUTHOR'S ORGANIZ ATION 07/10/2022 [facility] DATE CREATED AUTHOR AUTHOR'S ORGANIZ ATION 01/24/2024 [facility] DATE CREATED AUTHOR AUTHOR'S ORGANIZ ATION 05/22/2024 [facility] DATE CREATED AUTHOR AUTHOR'S ORGANIZ ATION 09/[facility]/20[facility] Care Teams (unrecognized sec tion and content) Team Status: Active Member Role Status Dates Sonali Muñoz ACCOUNT AUDITOR, ACCOUNT AUDITOR-C Primary Care Provider Active Team Status: Inactive Member Role Status Dates Pepe Cordero MD Emergency Provider Active Sonali Muñoz ACCOUNT AUDITOR, ACCOUNT AUDITOR-C Primary Care Provider Active Team Status: Active Member Role/Relationship Status Dates Sonali Muñoz ACCOUNT AUDITOR, ACCOUNT AUDITOR-C Primary Care Provider Active Team Status: Inactive Member Role/Relationship Status Dates Sonali Muñoz ACCOUNT AUDITOR, ACCOUNT AUDITOR-C Primary Care Provider Active Start: September 11, 2024 End: September 11, 2024 Sonali Muñoz ACCOUNT AUDITOR, ACCOUNT AUDITOR-C Referring Provider Active Start: September 11, 2024 End: September 11, 2024 Dr. Meño Sampson DO Attending Provider Active S tart: September 11, 2024 End: September 11, 2024 Team Status: Inactive Member Role/Relationship Status Dates Sonali Muñoz NP, ACCOUNT AUDITOR-C Primary Care Provider Active Start: September 11, 2024 End: September 11, 2024 Dr. Meño Sampson DO Attending Provider Active S tart: September 11, 2024 End: September 11, 2024 Dr. Meño Sampson , Referring Provider Active S tart: September 11, 2024 End: September 11, 2024 Goals (unrecognized section and content) Goals may be documented in a n alternate sectionGoals may be documented in an alternate sectionGoals may be documented in an alternate section FOR RECORDS PERTAINING TO PATIENTS WHO ARE OR HAVE BEEN ENROLLED IN A CHEMICAL DEPENDENCY/SUBSTANCEABUSE PROGRAM, SOME INFORMATION MAY BE OMITTED. This clinical summary was aggregated from multiple sources. Caution should be exercised in using it in the provision of clinical care. This summary normalizes information from multiple sources, and as a consequence, information in this document may materially change the coding, format and clinical context of patient data. In addition, data may be omitted in some cases. CLINICAL DECISIONS SHOULD BE BASED ON THE PRIMARY CLINICAL RECORDS. [facility]. provides no warranty or guarantee of the accuracy or completeness of information in this document.
== END | disposition home or self-care (01) ==
PROVIDERS: PCP Nurse Practitioner Family; Referring Provider Internal Medicine Critical Care Medicine; Visit Provider Internal Medicine Critical Care Medicine
DX: J45.909 Unspecified asthma, uncomplicated (principal)
CPT/HCPCS: 94060; 94726; 94729

== ENCOUNTER → 2024-10-01 | Outpatient (CLI) | payer SELFPAY ==
[2024-10-01 13:12] VITALS: PULSE 109; PULSE 110; PULSE 111; PULSE 112; PULSE 115; PULSE 68; PULSE 70; O2SAT 96; O2SAT 97; O2SAT 98
--- NOTE | 2024-10-03 08:54 | PCM.PSN.6M ---
PSN 6 Minute Walk Test 6 Minute Walk Test 6 Minute Walk Test: 6 Minute Walk Test PSN:6-Minute Walk Test Start: 10/01/24 13:09 Freq: Status: Active Protocol: [id number] Document 10/01/24 13:12 DONALDODAV (Rec: 10/01/24 13:19 DONALDODAV [id number]) 6 Minute Walk Test Date Performed 10/01/24 Time Performed 12:30 Height 5 ft 4 in Weight: 260 lb Weight in Pounds 260.[address]: Meño Sampson Assistive device None used: Pre-test Oxygen Delivery Room Air Method Pulse Ox (%) 98 Pulse Rate (60-100 68 beats/min) Dyspnea Toni Scale ( 0 0-10) Exertion Toni Scale 6 (6-20) 1st minute Oxygen Delivery Room Air Method Pulse Ox (%) 97 Pulse Rate (60-100 109 H beats/min) 2nd minute Oxygen Delivery Room Air Method Pulse Ox (%) 96 Pulse Rate (60-100 115 H beats/min) 3rd minute Oxygen Delivery Room Air Method Pulse Ox (%) 96 Pulse Rate (60-100 112 H beats/min) 4th minute Oxygen Delivery Room Air Method Pulse Ox (%) 96 Pulse Rate (60-100 110 H beats/min) 5th minute Oxygen Delivery Room Air Method Pulse Ox (%) 97 Pulse Rate (60-100 110 H beats/min) 6th minute Oxygen Delivery Room Air Method Pulse Ox (%) 96 Pulse Rate (60-100 111 H beats/min) Dyspnea Toni Scale ( 3 0-10) Exertion Toni Scale 12 (6-20) Post-test Oxygen Delivery Room Air Method Pulse Ox (%) 98 Pulse Rate (60-100 70 beats/min) Full Laps Walked 19 Partial Lap, Number 8 of Tiles Walked Total Distance 1129 Walked (ft) Interpretation Interpretation: The patient ambulated 1129 feet over the course of 6 minutes beginning on room air without assistive devices. Pretesting oxygen saturation was noted to be 98% on room air. With ambulation, the jorge oxygen saturation was 96%. There was no significant exertional oxygen desaturation. Recommendations Recommendations: There is no indication for the use of supplemental oxygen at this time.
== END | disposition home or self-care (01) ==
LOC: PSN 12:25
PROVIDERS: PCP Nurse Practitioner Family; Referring Provider Internal Medicine Critical Care Medicine; Visit Provider Internal Medicine Critical Care Medicine
DX: J45.909 Unspecified asthma, uncomplicated (principal)
CPT/HCPCS: 94618